=== PATIENT | male | born 1940 | race Caucasian/White ===

== ENCOUNTER 2017-06-13 07:18 | Day surgery (SDC) | payer OTHER ==
[2017-06-10 14:50] VITALS: BMI 29.2
[2017-06-13] MEDS ORDERED: MIDAZOLAM HCL 2 MG/2 ML SINGLE DOSE VIAL ONE (08:15)
[2017-06-13 09:54] VITALS: TEMP 97.7
[2017-06-13] MEDS ORDERED: ACETAMINOPHEN 325 MG TABLET (FP) PO PRN (10:03)
[2017-06-13] MEDS ORDERED: ONDANSETRON 4 MG/2 ML VIAL IVPUSH PRN (10:03)
[2017-06-13] MEDS ORDERED: LACTATED RINGERS SOLUTION 1,000 ML IV SCH (10:15)
--- NOTE | 2017-06-13 10:30 | OP ---
Operative Note - Note: Operative Date: 06/13/17 Pre-Operative Diagnosis: right renal stone Operation: right eswl Findings: right 5 mm renal stone Post-Operative Diagnosis: Same as Pre-op Surgeon: Jona Patel Anesthesia: Fractional Operative Report Dictated: Yes
[2017-06-13 11:15] VITALS: BP 116/52; PULSE 55
--- NOTE | 2017-06-13 22:03 | OP ---
DATE OF OPERATION: 06/13/2017 PREOPERATIVE DIAGNOSIS: Right renal stone. POSTOPERATIVE DIAGNOSIS: Right renal stone. PROCEDURE: Right extracorporeal shock wave lithotripsy. ATTENDING: Katie Schmidt MD ANESTHESIA: General. DESCRIPTION OF OPERATION: The patient was brought in the operating room and placed in supine position on the operating table. Ultrasonography and fluoroscopy were performed. A right 5-mm renal stone was identified. Once this was identified, fractional anesthesia was administered. Levaquin was given preoperatively. At this point, extracorporeal shock wave lithotripsy was performed on the 5-mm stone. Excellent fragmentation of the stone was noted under real-time ultrasonography and fluoroscopy. Once this was accomplished, the patient was transferred to the recovery room for evaluation. No complications were noted. The patient tolerated the procedure very well. KATIE SCHMIDT M.D. /[id number]
== END 2017-06-13 11:45 | disposition home or self-care (01) ==
LOC: JASU-SURG 07:18
PROVIDERS: ATTEND Urology
PROC: 0TF3XZZ Fragmentation in Right Kidney Pelvis, External Approach (ICD-10-PCS; principal; 2017-06-13 08:45)
DX: N20.0 Calculus of kidney (principal)
CPT/HCPCS: 82962

== ENCOUNTER 2020-04-24 11:50 | Inpatient (IN) | payer OTHER ==
[2020-04-24 14:29] LABS: BASO % 0.6 % (0-2.0); EOS % 0.8 % (0-4.5); HEMATOCRIT 35.3 % (35.4-49); HEMOGLOBIN 12.4 GM/dL (11.7-16.9); MCH 32.4 pg (25.7-33.7); MCHC 35.1 g/dl (32.0-35.9); MEAN CELL VOLUME 92.3 fl (80-96); MONO % 10.6 % (3.8-10.2); PLATELET COUNT 319 K/MM3 (134-434); RBC 3.82 M/mm3 (4.00-5.60); RDW 13.4 % (11.9-15.9); WHITE BLOOD COUNT 5.7 K/mm3 (4.0-10.0)
[2020-04-24 14:37] LABS: INR 1.23 (0.83-1.09); PROTHROMBIN TIME (PATIENT) 14.8 SEC (9.7-13.0)
[2020-04-24 14:40] LABS: ACTIVATED PTT 30.8 SECONDS (25.2-36.5)
[2020-04-24 14:43] LABS: CHLORIDE 105 mmol/L (98-107); POTASSIUM 3.9 mmol/L (3.5-5.1); SODIUM 140 mmol/L (136-145)
[2020-04-24 14:45] LABS: CALCIUM 8.4 mg/dL (8.5-10.1)
[2020-04-24 14:46] LABS: ALBUMIN 3.2 g/dl (3.4-5.0); ANION GAP 11 MMOL/L (8-16); BLOOD UREA NITROGEN 17.4 mg/dL (7-18); CO2 24 mmol/L (21-32); GLUCOSE,RANDOM 99 mg/dL (74-106)
[2020-04-24 14:49] LABS: CREATININE 0.8 mg/dL (0.55-1.3); SGOT/AST 40 U/L (15-37); SGPT/ALT 37 U/L (13-61)
[2020-04-24 14:51] LABS: TOT PROT 7.6 g/dl (6.4-8.2)
[2020-04-24 14:52] LABS: ALK PHOS 102 U/L (45-117)
[2020-04-24] MEDS ORDERED: HALOPERIDOL LACTATE 5 MG/ML IM ONE (15:31)
[2020-04-24] MEDS ORDERED: HALOPERIDOL LACTATE 5 MG/ML ONE ×2 (15:38→23:55)
[2020-04-24 15:44] LABS: URINE APPEARANCE Clear; URINE BILIRUBIN 1+ (NEGATIVE); URINE COLOR Yellow; URINE GLUCOSE (UA) Negative (NEGATIVE); URINE KETONE 1+ (NEGATIVE); URINE LEUK ESTERASE Negative (NEGATIVE); URINE NITRITE Negative (NEGATIVE); URINE PROTEIN 1+ (NEGATIVE); URINE UROBILINOGEN 4.0 E.U/dl mg/dL (0.2-1.0)
[2020-04-24] MEDS ORDERED: LORazepam 2 MG/ML SDV VIAL IM ONE ×2 (16:00→18:45)
[2020-04-24] MEDS ORDERED: LORazepam 2 MG/ML SDV VIAL ONE ×2 (16:04→18:40)
[2020-04-24] MEDS ORDERED: MAGNESIUM SULF 50% (8.12 MEQ/2 ML-1 GM VIAL) ONE (17:31)
[2020-04-24] MEDS: LORazepam 2 MG/ML SDV VIAL IVPUSH ONE ×2 (18:45)
[2020-04-24] MEDS ORDERED: HALOPERIDOL DECANOATE 100 MG/ML IM ONE (23:51)
[2020-04-25] MEDS ORDERED: AZITHROMYCIN IVPB 500 MG in DEXTROSE 5%-WATER - 250 ML IVPB ONE (00:12)
[2020-04-25] MEDS ORDERED: ALBUTEROL SO4 HFA INHALER IH PRN (00:14)
[2020-04-25] MEDS ORDERED: AZITHROMYCIN IVPB 500 MG/250 ML BAG IVPB ONE (00:43)
[2020-04-25] MEDS ORDERED: SODIUM CHLORIDE 0.9% 500 ML INFUS.BAG IV ONE (02:19)
[2020-04-25] MEDS ORDERED: MIDAZOLAM HCL 2 MG/2 ML SINGLE DOSE VIAL IVPUSH ONE ×4 (03:18→06:29)
[2020-04-25] MEDS ORDERED: MIDAZOLAM HCL 2 MG/2 ML SINGLE DOSE VIAL ONE ×4 (03:25→06:44)
[2020-04-25] MEDS ORDERED: LORazepam 2 MG/ML SDV VIAL ONE (03:39)
[2020-04-25] MEDS ORDERED: LORazepam 2 MG/ML SDV VIAL IVPUSH ONE (03:39)
[2020-04-25] MEDS ORDERED: HALOPERIDOL LACTATE 5 MG/ML IM ONE ×2 (03:53→19:57)
[2020-04-25] MEDS ORDERED: HALOPERIDOL LACTATE 5 MG/ML ONE (03:58)
[2020-04-25] MEDS ORDERED: FOLIC ACID INJECTION - 1 MG, THIAMINE HCL 100 MG, MULTIVIT INJECTION ADULT 10 ML in SOD... IVPB ONE (05:45)
[2020-04-25] MEDS: ZINC SULFATE 220 MG CAPSULE (FP) PO SCH ×2 (10:15→22:11)
[2020-04-25] MEDS: CHOLECALCIFEROL (VIT D3) 1,000 UNIT (25 MCG) TABLET PO SCH (10:16)
[2020-04-25] MEDS: ASCORBIC ACID 500 MG TABLET (FP) PO SCH ×2 (10:16→22:12)
[2020-04-25] MEDS ORDERED: ENOXAPARIN NA (PORCINE) 40 MG/0.4 ML DISP.SYRIN SQ ONE (10:19)
[2020-04-25] MEDS ORDERED: DEXAMETHASONE SOD PHOSPHATE 10 MG/1 ML VIAL ONE (10:19)
[2020-04-25] MEDS: DEXAMETHASONE SOD PHOSPHATE 4 MG/1 ML VIAL IVPUSH SCH (10:24)
[2020-04-25] MEDS: ENOXAPARIN NA (PORCINE) 40 MG/0.4 ML DISP.SYRIN SQ SCH (10:24)
[2020-04-25] MEDS ORDERED: CEFTRIAXONE 1 GM/50 ML BAG ONE (14:58)
[2020-04-25] MEDS: CEFTRIAXONE 1 GM in DEXTROSE 5%-WATER - 50 ML IVPB SCH (15:06)
[2020-04-25 20:36] LABS: COCAINE, UR NEGATIVE ng/ml (CUTOFF=300); METHADONE, UR NEGATIVE ng/ml (CUTOFF=300); OPIATES, URI NEGATIVE ng/ml (CUTOFF=300); URINE AMPHETAMINES NEGATIVE ng/ml (CUTOFF=500); URINE BARBITURATES NEGATIVE ng/ml (CUTOFF=200)
[2020-04-25 20:37] LABS: PHENCYCLIDINE,URINE NEGATIVE ng/ml (CUTOFF=25)
[2020-04-25 20:53] LABS: URINE BENZODIAZEPINES POSITIVE ng/ml (CUTOFF=200)
[2020-04-25] MEDS ORDERED: LORazepam 2 MG/ML SDV VIAL IM ONE (21:15)
[2020-04-25] MEDS: ATORVASTATIN CA 40 MG TABLET (FP) PO SCH (22:10)
[2020-04-25] MEDS: TAMSULOSIN HCL 0.4 MG CAP PO SCH (22:10)
[2020-04-26] MEDS: DEXTROSE 5%-0.45% SALINE 1,000 ML IV SCH (00:36)
[2020-04-26] MEDS ORDERED: LORazepam 2 MG/ML SDV VIAL IM ONE ×3 (01:25→23:45)
[2020-04-26] MEDS: INSULIN SLIDING SCALE (NOVOLOG) 1 VIAL SQ SCH ×4 (06:17→23:07)
[2020-04-26 06:52] LABS: BASO % 0.3 % (0-2.0); HEMATOCRIT 35.8 % (35.4-49); HEMOGLOBIN 12.5 GM/dL (11.7-16.9); MCH 32.1 pg (25.7-33.7); MEAN CELL VOLUME 91.9 fl (80-96); MEAN PLT VOLUME 7.7 fl (7.5-11.1); MONO % 12.4 % (3.8-10.2); NEUT % 78.3 % (42.8-82.8); PLATELET COUNT 358 K/MM3 (134-434); RDW 13.5 % (11.9-15.9); WHITE BLOOD COUNT 16.6 K/mm3 (4.0-10.0)
[2020-04-26 07:17] LABS: POTASSIUM 3.5 mmol/L (3.5-5.1)
[2020-04-26 07:22] LABS: ALBUMIN 3.5 g/dl (3.4-5.0); CALCIUM 8.4 mg/dL (8.5-10.1)
[2020-04-26 07:23] LABS: BLOOD UREA NITROGEN 20.6 mg/dL (7-18)
[2020-04-26 07:26] LABS: CREATININE 0.9 mg/dL (0.55-1.3)
[2020-04-26 07:27] LABS: BILIRUBIN,TOTAL 1.1 mg/dL (0.2-1); TOT PROT 7.9 g/dl (6.4-8.2)
[2020-04-26] MEDS ORDERED: PT OWN MED DRAWER 7, Y5N ONE (09:54)
[2020-04-26] MEDS ORDERED: cefTRIAXone SODIUM 1 GM VIAL ONE (09:54)
[2020-04-26] MEDS ORDERED: DEXTROSE 5%-WATER - 50 ML IVPB ONE (09:55)
[2020-04-26] MEDS: ENOXAPARIN NA (PORCINE) 40 MG/0.4 ML DISP.SYRIN SQ SCH (10:13)
[2020-04-26] MEDS: CEFTRIAXONE 1 GM in DEXTROSE 5%-WATER - 50 ML IVPB SCH (10:14)
[2020-04-26] MEDS: DEXAMETHASONE SOD PHOSPHATE 4 MG/1 ML VIAL IVPUSH SCH (10:15)
[2020-04-26] MEDS: CHOLECALCIFEROL (VIT D3) 1,000 UNIT (25 MCG) TABLET PO SCH (10:41)
[2020-04-26] MEDS: ZINC SULFATE 220 MG CAPSULE (FP) PO SCH ×2 (10:41→22:38)
[2020-04-26] MEDS: ASCORBIC ACID 500 MG TABLET (FP) PO SCH ×2 (10:41→22:38)
[2020-04-26] MEDS ORDERED: ACETAMINOPHEN 1000 MG/100 ML VIAL (NON FORMULARY) IVPB ONE (12:30)
[2020-04-26 13:11] VITALS: BMI 31.6
[2020-04-26] MEDS ORDERED: REMDESIVIR 200 MG in SODIUM CHLORIDE 210 ML IVPB ONE (14:00)
[2020-04-26] MEDS: ENOXAPARIN NA (PORCINE) 80 MG/0.8 ML DISP.SYRIN SQ SCH ×2 (14:28→23:04)
[2020-04-26] MEDS: TAMSULOSIN HCL 0.4 MG CAP PO SCH (22:38)
[2020-04-26] MEDS: ATORVASTATIN CA 40 MG TABLET (FP) PO SCH (22:38)
[2020-04-27] MEDS ORDERED: ACETAMINOPHEN INJECTION 100 ML IVPB ONE (02:15)
[2020-04-27] MEDS: ACETAMINOPHEN 1000 MG/100 ML VIAL (NON FORMULARY) IVPB PRN ×2 (02:19→13:22)
[2020-04-27] MEDS: DEXTROSE 5%-0.45% SALINE 1,000 ML IV SCH (02:19)
[2020-04-27] MEDS: INSULIN SLIDING SCALE (NOVOLOG) 1 VIAL SQ SCH ×4 (06:14→22:11)
[2020-04-27 07:50] LABS: BASO % 0.2 % (0-2.0); HEMATOCRIT 34.9 % (35.4-49); HEMOGLOBIN 11.9 GM/dL (11.7-16.9); LYMPH % 4.7 % (8-40); MCH 31.3 pg (25.7-33.7); MCHC 34.1 g/dl (32.0-35.9); MEAN CELL VOLUME 91.7 fl (80-96); MONO % 6.3 % (3.8-10.2); NEUT % 88.8 % (42.8-82.8); PLATELET COUNT 343 K/MM3 (134-434); RBC 3.81 M/mm3 (4.00-5.60); RDW 13.5 % (11.9-15.9); WHITE BLOOD COUNT 24.2 K/mm3 (4.0-10.0)
[2020-04-27 08:10] LABS: CALCIUM 8.3 mg/dL (8.5-10.1)
[2020-04-27 08:11] LABS: ALBUMIN 3.4 g/dl (3.4-5.0); BLOOD UREA NITROGEN 25.3 mg/dL (7-18)
[2020-04-27 08:14] LABS: CREATININE 0.8 mg/dL (0.55-1.3)
[2020-04-27 08:15] LABS: BILIRUBIN,TOTAL 0.9 mg/dL (0.2-1); TOT PROT 7.8 g/dl (6.4-8.2)
[2020-04-27] MEDS ORDERED: DEXTROSE 5%-WATER - 50 ML IVPB ONE (11:57)
[2020-04-27] MEDS ORDERED: cefTRIAXone SODIUM 1 GM VIAL ONE (11:57)
[2020-04-27] MEDS: ZINC SULFATE 220 MG CAPSULE (FP) PO SCH ×2 (13:22→22:10)
[2020-04-27] MEDS: ASCORBIC ACID 500 MG TABLET (FP) PO SCH ×2 (13:22→22:10)
[2020-04-27] MEDS: ENOXAPARIN NA (PORCINE) 80 MG/0.8 ML DISP.SYRIN SQ SCH ×2 (13:22→22:11)
[2020-04-27] MEDS: DEXAMETHASONE SOD PHOSPHATE 4 MG/1 ML VIAL IVPUSH SCH (13:22)
[2020-04-27] MEDS: CHOLECALCIFEROL (VIT D3) 1,000 UNIT (25 MCG) TABLET PO SCH (13:22)
[2020-04-27] MEDS: CEFTRIAXONE 1 GM in DEXTROSE 5%-WATER - 50 ML IVPB SCH (13:35)
[2020-04-27] MEDS: REMDESIVIR 100 MG in SODIUM CHLORIDE 230 ML IVPB SCH (15:17)
[2020-04-27] MEDS ORDERED: PNEUMOC 13-VAL CONJ-DIP CRM/PF 0.5 ML DISP.SYRIN IM ONE (20:00)
[2020-04-27] MEDS: ATORVASTATIN CA 40 MG TABLET (FP) PO SCH (22:10)
[2020-04-27] MEDS: TAMSULOSIN HCL 0.4 MG CAP PO SCH (22:10)
[2020-04-28] MEDS: INSULIN SLIDING SCALE (NOVOLOG) 1 VIAL SQ SCH ×4 (06:28→22:43)
[2020-04-28] MEDS: ACETAMINOPHEN 1000 MG/100 ML VIAL (NON FORMULARY) IVPB PRN (06:38)
[2020-04-28 08:30] LABS: BASO % 0.3 % (0-2.0); HEMATOCRIT 33.6 % (35.4-49); HEMOGLOBIN 11.6 GM/dL (11.7-16.9); MCH 31.9 pg (25.7-33.7); MCHC 34.6 g/dl (32.0-35.9); MEAN CELL VOLUME 92.1 fl (80-96); MEAN PLT VOLUME 8.5 fl (7.5-11.1); MONO % 5.2 % (3.8-10.2); NEUT % 88.5 % (42.8-82.8); PLATELET COUNT 299 K/MM3 (134-434); RBC 3.65 M/mm3 (4.00-5.60); RDW 13.8 % (11.9-15.9); WHITE BLOOD COUNT 21.9 K/mm3 (4.0-10.0)
[2020-04-28 08:48] LABS: POTASSIUM 3.1 mmol/L (3.5-5.1)
[2020-04-28 08:52] LABS: BLOOD UREA NITROGEN 29.4 mg/dL (7-18)
[2020-04-28 08:55] LABS: CREATININE 0.7 mg/dL (0.55-1.3)
[2020-04-28 08:56] LABS: BILIRUBIN,TOTAL 0.9 mg/dL (0.2-1); TOT PROT 7.3 g/dl (6.4-8.2)
[2020-04-28] MEDS ORDERED: DEXTROSE 5%-WATER - 50 ML IVPB ONE (09:02)
[2020-04-28] MEDS ORDERED: cefTRIAXone SODIUM 1 GM VIAL ONE (09:02)
[2020-04-28] MEDS: ENOXAPARIN NA (PORCINE) 80 MG/0.8 ML DISP.SYRIN SQ SCH ×2 (09:18→22:42)
[2020-04-28] MEDS: CEFTRIAXONE 1 GM in DEXTROSE 5%-WATER - 50 ML IVPB SCH (09:18)
[2020-04-28] MEDS: DEXAMETHASONE SOD PHOSPHATE 4 MG/1 ML VIAL IVPUSH SCH (09:19)
[2020-04-28] MEDS: ASCORBIC ACID 500 MG TABLET (FP) PO SCH ×2 (09:20→22:42)
[2020-04-28] MEDS: CHOLECALCIFEROL (VIT D3) 1,000 UNIT (25 MCG) TABLET PO SCH (09:20)
[2020-04-28] MEDS: ZINC SULFATE 220 MG CAPSULE (FP) PO SCH ×2 (09:20→22:42)
[2020-04-28 11:52] LABS: ANISOCYTOSIS 1+; MACROCYTOSIS 0; PLATELET ESTIMATE NORMAL; TOXIC GRANULATION 1+
[2020-04-28] MEDS: REMDESIVIR 100 MG in SODIUM CHLORIDE 230 ML IVPB SCH (15:05)
[2020-04-28] MEDS: TAMSULOSIN HCL 0.4 MG CAP PO SCH (22:42)
[2020-04-28] MEDS: ATORVASTATIN CA 40 MG TABLET (FP) PO SCH (22:42)
[2020-04-28] MEDS: KCL 10 MEQ IVPB 10 MEQ/100 ML INFUS.BAG IVPB SCH ×2 (22:43→23:56)
[2020-04-29] MEDS: KCL 10 MEQ IVPB 10 MEQ/100 ML INFUS.BAG IVPB SCH ×3 (01:10→23:51)
[2020-04-29] MEDS: INSULIN SLIDING SCALE (NOVOLOG) 1 VIAL SQ SCH ×4 (07:01→23:03)
[2020-04-29 08:26] LABS: BASO % 0.9 % (0-2.0); HEMATOCRIT 33.8 % (35.4-49); HEMOGLOBIN 11.3 GM/dL (11.7-16.9); LYMPH % 10.8 % (8-40); MCH 31.1 pg (25.7-33.7); MCHC 33.4 g/dl (32.0-35.9); MEAN PLT VOLUME 8.9 fl (7.5-11.1); MONO % 4.9 % (3.8-10.2); NEUT % 83.4 % (42.8-82.8); PLATELET COUNT 277 K/MM3 (134-434); RBC 3.64 M/mm3 (4.00-5.60); RDW 14.1 % (11.9-15.9); WHITE BLOOD COUNT 13.9 K/mm3 (4.0-10.0)
[2020-04-29 08:46] LABS: POTASSIUM 3.3 mmol/L (3.5-5.1)
[2020-04-29 08:48] LABS: ALBUMIN 2.7 g/dl (3.4-5.0); BLOOD UREA NITROGEN 27.1 mg/dL (7-18); CALCIUM 8.2 mg/dL (8.5-10.1)
[2020-04-29 08:52] LABS: CREATININE 0.5 mg/dL (0.55-1.3)
[2020-04-29 08:53] LABS: BILIRUBIN,TOTAL 0.9 mg/dL (0.2-1)
[2020-04-29] MEDS ORDERED: cefTRIAXone SODIUM 1 GM VIAL ONE (10:36)
[2020-04-29] MEDS ORDERED: DEXTROSE 5%-WATER - 50 ML IVPB ONE (10:36)
[2020-04-29] MEDS: ASCORBIC ACID 500 MG TABLET (FP) PO SCH ×2 (10:42→22:48)
[2020-04-29] MEDS: ENOXAPARIN NA (PORCINE) 80 MG/0.8 ML DISP.SYRIN SQ SCH ×2 (10:42→23:03)
[2020-04-29] MEDS: CEFTRIAXONE 1 GM in DEXTROSE 5%-WATER - 50 ML IVPB SCH (10:42)
[2020-04-29] MEDS: DEXAMETHASONE SOD PHOSPHATE 4 MG/1 ML VIAL IVPUSH SCH (10:42)
[2020-04-29] MEDS: ZINC SULFATE 220 MG CAPSULE (FP) PO SCH ×2 (10:42→22:48)
[2020-04-29] MEDS: LISINOPRIL 5 MG TABLET PO SCH (10:42)
[2020-04-29] MEDS: CHOLECALCIFEROL (VIT D3) 1,000 UNIT (25 MCG) TABLET PO SCH (10:42)
[2020-04-29] MEDS: REMDESIVIR 100 MG in SODIUM CHLORIDE 230 ML IVPB SCH (14:03)
[2020-04-29] MEDS ORDERED: ACETAMINOPHEN 500 MG TABLET (FP) PO PRN (17:46)
[2020-04-29] MEDS: ATORVASTATIN CA 40 MG TABLET (FP) PO SCH (22:48)
[2020-04-29] MEDS: TAMSULOSIN HCL 0.4 MG CAP PO SCH (22:48)
[2020-04-29] MEDS: DEXTROSE 5%-0.45% SALINE 1,000 ML IV SCH (22:53)
[2020-04-30] MEDS: INSULIN SLIDING SCALE (NOVOLOG) 1 VIAL SQ SCH ×4 (06:14→22:19)
[2020-04-30 07:28] LABS: POTASSIUM 3.1 mmol/L (3.5-5.1)
[2020-04-30 07:44] LABS: ALBUMIN 2.5 g/dl (3.4-5.0); BLOOD UREA NITROGEN 28.4 mg/dL (7-18); CALCIUM 8.1 mg/dL (8.5-10.1)
[2020-04-30 07:47] LABS: CREATININE 0.7 mg/dL (0.55-1.3)
[2020-04-30 07:49] LABS: TOT PROT 6.5 g/dl (6.4-8.2)
[2020-04-30] MEDS ORDERED: cefTRIAXone SODIUM 1 GM VIAL ONE (09:53)
[2020-04-30] MEDS ORDERED: DEXTROSE 5%-WATER - 50 ML IVPB ONE (09:53)
[2020-04-30] MEDS: DEXAMETHASONE SOD PHOSPHATE 4 MG/1 ML VIAL IVPUSH SCH (09:56)
[2020-04-30] MEDS: ENOXAPARIN NA (PORCINE) 80 MG/0.8 ML DISP.SYRIN SQ SCH ×2 (09:56→22:18)
[2020-04-30] MEDS: LISINOPRIL 5 MG TABLET PO SCH (09:57)
[2020-04-30] MEDS: ZINC SULFATE 220 MG CAPSULE (FP) PO SCH ×2 (09:57→22:19)
[2020-04-30] MEDS: ASCORBIC ACID 500 MG TABLET (FP) PO SCH ×2 (09:57→22:18)
[2020-04-30] MEDS: CEFTRIAXONE 1 GM in DEXTROSE 5%-WATER - 50 ML IVPB SCH (09:57)
[2020-04-30] MEDS: CHOLECALCIFEROL (VIT D3) 1,000 UNIT (25 MCG) TABLET PO SCH (09:57)
[2020-04-30] MEDS: REMDESIVIR 100 MG in SODIUM CHLORIDE 230 ML IVPB SCH (14:30)
[2020-04-30] MEDS: ATORVASTATIN CA 40 MG TABLET (FP) PO SCH (22:18)
[2020-04-30] MEDS: TAMSULOSIN HCL 0.4 MG CAP PO SCH (22:18)
[2020-05-01] MEDS: INSULIN SLIDING SCALE (NOVOLOG) 1 VIAL SQ SCH ×4 (06:36→22:29)
[2020-05-01] MEDS: DEXTROSE 5%-0.45% SALINE 1,000 ML IV SCH ×2 (06:37→15:01)
[2020-05-01] MEDS ORDERED: DEXTROSE 5%-WATER - 50 ML IVPB ONE (09:26)
[2020-05-01] MEDS ORDERED: cefTRIAXone SODIUM 1 GM VIAL ONE (09:26)
[2020-05-01] MEDS: DEXAMETHASONE SOD PHOSPHATE 4 MG/1 ML VIAL IVPUSH SCH (09:29)
[2020-05-01] MEDS: CHOLECALCIFEROL (VIT D3) 1,000 UNIT (25 MCG) TABLET PO SCH (09:31)
[2020-05-01] MEDS: LISINOPRIL 5 MG TABLET PO SCH (09:31)
[2020-05-01] MEDS: ZINC SULFATE 220 MG CAPSULE (FP) PO SCH ×2 (09:31→22:30)
[2020-05-01] MEDS: ENOXAPARIN NA (PORCINE) 80 MG/0.8 ML DISP.SYRIN SQ SCH ×2 (09:31→22:29)
[2020-05-01] MEDS: ASCORBIC ACID 500 MG TABLET (FP) PO SCH ×2 (09:31→22:30)
[2020-05-01] MEDS: CEFTRIAXONE 1 GM in DEXTROSE 5%-WATER - 50 ML IVPB SCH (09:31)
[2020-05-01 14:41] LABS: POTASSIUM 3.2 mmol/L (3.5-5.1)
[2020-05-01 14:44] LABS: ALBUMIN 2.4 g/dl (3.4-5.0); BLOOD UREA NITROGEN 28.2 mg/dL (7-18); CALCIUM 7.9 mg/dL (8.5-10.1)
[2020-05-01 14:47] LABS: CREATININE 0.7 mg/dL (0.55-1.3)
[2020-05-01 14:49] LABS: BILIRUBIN,TOTAL 0.5 mg/dL (0.2-1); TOT PROT 6.2 g/dl (6.4-8.2)
[2020-05-01] MEDS: KCL 10 MEQ IVPB 10 MEQ/100 ML INFUS.BAG IVPB SCH ×2 (15:02→17:02)
[2020-05-01] MEDS: ATORVASTATIN CA 40 MG TABLET (FP) PO SCH (22:30)
[2020-05-01] MEDS: TAMSULOSIN HCL 0.4 MG CAP PO SCH (22:30)
[2020-05-02] MEDS: INSULIN SLIDING SCALE (NOVOLOG) 1 VIAL SQ SCH ×4 (06:07→22:51)
[2020-05-02 07:02] LABS: BASO % 0.1 % (0-2.0); EOS % 0.2 % (0-4.5); HEMATOCRIT 33.4 % (35.4-49); HEMOGLOBIN 11.6 GM/dL (11.7-16.9); LYMPH % 20.1 % (8-40); MCH 31.6 pg (25.7-33.7); MCHC 34.6 g/dl (32.0-35.9); MEAN CELL VOLUME 91.4 fl (80-96); MEAN PLT VOLUME 8.9 fl (7.5-11.1); MONO % 8.8 % (3.8-10.2); NEUT % 70.8 % (42.8-82.8); PLATELET COUNT 207 K/MM3 (134-434); RBC 3.66 M/mm3 (4.00-5.60); RDW 13.7 % (11.9-15.9); WHITE BLOOD COUNT 8.5 K/mm3 (4.0-10.0)
[2020-05-02 07:14] LABS: CHLORIDE 108 mmol/L (98-107); POTASSIUM 3.2 mmol/L (3.5-5.1); SODIUM 142 mmol/L (136-145)
[2020-05-02 07:19] LABS: ALBUMIN 2.4 g/dl (3.4-5.0); BLOOD UREA NITROGEN 19.6 mg/dL (7-18); CALCIUM 7.7 mg/dL (8.5-10.1)
[2020-05-02 07:22] LABS: ANION GAP 6 MMOL/L (8-16); CO2 27 mmol/L (21-32); GLUCOSE,RANDOM 115 mg/dL (74-106)
[2020-05-02 07:23] LABS: CREATININE 0.5 mg/dL (0.55-1.3); SGOT/AST 60 U/L (15-37); SGPT/ALT 81 U/L (13-61)
[2020-05-02 07:24] LABS: BILIRUBIN,TOTAL 0.8 mg/dL (0.2-1); TOT PROT 6.1 g/dl (6.4-8.2)
[2020-05-02 07:25] LABS: ALK PHOS 78 U/L (45-117)
[2020-05-02] MEDS ORDERED: cefTRIAXone SODIUM 1 GM VIAL ONE (08:52)
[2020-05-02] MEDS ORDERED: DEXTROSE 5%-WATER - 50 ML IVPB ONE (08:52)
[2020-05-02] MEDS: CEFTRIAXONE 1 GM in DEXTROSE 5%-WATER - 50 ML IVPB SCH (09:27)
[2020-05-02] MEDS: DEXAMETHASONE SOD PHOSPHATE 4 MG/1 ML VIAL IVPUSH SCH (09:30)
[2020-05-02] MEDS: CHOLECALCIFEROL (VIT D3) 1,000 UNIT (25 MCG) TABLET PO SCH (09:30)
[2020-05-02] MEDS: ZINC SULFATE 220 MG CAPSULE (FP) PO SCH ×2 (09:30→22:34)
[2020-05-02] MEDS: ASCORBIC ACID 500 MG TABLET (FP) PO SCH ×2 (09:30→22:34)
[2020-05-02] MEDS: LISINOPRIL 5 MG TABLET PO SCH (09:30)
[2020-05-02] MEDS: ENOXAPARIN NA (PORCINE) 80 MG/0.8 ML DISP.SYRIN SQ SCH ×2 (09:30→22:34)
[2020-05-02 11:00] LABS: ANISOCYTOSIS 3+; MACROCYTOSIS 0; PLATELET ESTIMATE NORMAL; TOXIC GRANULATION 1+
[2020-05-02 12:40] LABS: MAGNESIUM 1.8 mg/dL (1.8-2.4)
[2020-05-02 12:43] LABS: CHOLESTEROL 67 mg/dL (50-200); PHOSPHOROUS 3.5 mg/dL (2.5-4.9); TRIGLYCERIDES 53 mg/dL (0-150)
[2020-05-02 12:45] LABS: LDL CHOLESTEROL (ONLY SJRH) 30 mg/dL (5-100)
[2020-05-02 12:47] LABS: HDL CHOLESTEROL 41 mg/dL (40-60)
[2020-05-02 12:49] LABS: N-TERMINAL BNP 272.6 pg/ml (5-450)
[2020-05-02] MEDS: TAMSULOSIN HCL 0.4 MG CAP PO SCH (22:33)
[2020-05-02] MEDS: ATORVASTATIN CA 40 MG TABLET (FP) PO SCH (22:34)
[2020-05-02] MEDS: POTASSIUM CHLORIDE TABS 20 MEQ TABLET.ER (FP) PO SCH ×2 (22:54→22:55)
[2020-05-02] MEDS ORDERED: ALBUTEROL SO4 HFA INHALER IH PRN (23:55)
[2020-05-02] MEDS ORDERED: ACETAMINOPHEN 500 MG TABLET (FP) PO PRN (23:55)
[2020-05-03] MEDS: KCL 10 MEQ IVPB 10 MEQ/100 ML INFUS.BAG IVPB SCH ×4 (00:06→16:32)
[2020-05-03] MEDS: INSULIN SLIDING SCALE (NOVOLOG) 1 VIAL SQ SCH ×4 (06:28→23:05)
[2020-05-03] MEDS ORDERED: ENOXAPARIN NA (PORCINE) 80 MG/0.8 ML DISP.SYRIN SQ SCH (10:00)
[2020-05-03] MEDS ORDERED: DEXAMETHASONE SOD PHOSPHATE 4 MG/1 ML VIAL IVPUSH SCH (10:00)
[2020-05-03 10:44] LABS: BASO % 0.5 % (0-2.0); EOS % 1.3 % (0-4.5); HEMATOCRIT 33.4 % (35.4-49); HEMOGLOBIN 11.5 GM/dL (11.7-16.9); LYMPH % 17.9 % (8-40); MCH 31.5 pg (25.7-33.7); MCHC 34.3 g/dl (32.0-35.9); MEAN CELL VOLUME 91.8 fl (80-96); MEAN PLT VOLUME 9.5 fl (7.5-11.1); MONO % 9.1 % (3.8-10.2); NEUT % 71.2 % (42.8-82.8); PLATELET COUNT 188 K/MM3 (134-434); RBC 3.64 M/mm3 (4.00-5.60); RDW 13.7 % (11.9-15.9); WHITE BLOOD COUNT 9.4 K/mm3 (4.0-10.0)
[2020-05-03 11:15] LABS: POTASSIUM 3.1 mmol/L (3.5-5.1)
[2020-05-03 11:19] LABS: ALBUMIN 2.4 g/dl (3.4-5.0); CALCIUM 7.8 mg/dL (8.5-10.1)
[2020-05-03 11:20] LABS: BLOOD UREA NITROGEN 16.7 mg/dL (7-18)
[2020-05-03 11:22] LABS: CREATININE 0.5 mg/dL (0.55-1.3)
[2020-05-03 11:25] LABS: BILIRUBIN,TOTAL 0.8 mg/dL (0.2-1); TOT PROT 5.8 g/dl (6.4-8.2)
[2020-05-03 12:55] LABS: ANISOCYTOSIS 0; HELMET CELLS 0; HOWELL-JOLLY BODIES 0; MACROCYTOSIS 0; OVALOCYTE 0; PLATELET ESTIMATE NORMAL; ROULEAU 0; SICKELED CELLS 0; TARGET CELLS 0; TEAR DROP CELLS 0; TOXIC GRANULATION 0
[2020-05-03] MEDS: CHOLECALCIFEROL (VIT D3) 1,000 UNIT (25 MCG) TABLET PO SCH (12:59)
[2020-05-03] MEDS: LISINOPRIL 5 MG TABLET PO SCH (12:59)
[2020-05-03] MEDS: ASCORBIC ACID 500 MG TABLET (FP) PO SCH ×2 (12:59→21:44)
[2020-05-03] MEDS: ENOXAPARIN NA (PORCINE) 40 MG/0.4 ML DISP.SYRIN SQ SCH (12:59)
[2020-05-03] MEDS: ZINC SULFATE 220 MG CAPSULE (FP) PO SCH ×2 (12:59→21:43)
[2020-05-03] MEDS: TAMSULOSIN HCL 0.4 MG CAP PO SCH (13:00)
[2020-05-03] MEDS ORDERED: POTASSIUM CHLORIDE ORAL LIQUID 20 MEQ/15 ML PO ONE (14:15)
[2020-05-03] MEDS ORDERED: DEXAMETHASONE 4 MG TABLET (FP) PO SCH (20:15)
[2020-05-03] MEDS: ATORVASTATIN CA 40 MG TABLET (FP) PO SCH (21:44)
[2020-05-03] MEDS: SILVER SULFADIAZINE 1% TOP CREAM 400 GM JAR TP SCH (22:59)
[2020-05-04] MEDS: SILVER SULFADIAZINE 1% TOP CREAM 400 GM JAR TP SCH ×2 (05:50→12:36)
[2020-05-04] MEDS: INSULIN SLIDING SCALE (NOVOLOG) 1 VIAL SQ SCH ×4 (06:32→23:02)
[2020-05-04 10:11] LABS: BASO % 0.2 % (0-2.0); EOS % 0.1 % (0-4.5); HEMATOCRIT 36.3 % (35.4-49); HEMOGLOBIN 12.5 GM/dL (11.7-16.9); LYMPH % 10.6 % (8-40); MCH 31.5 pg (25.7-33.7); MCHC 34.4 g/dl (32.0-35.9); MEAN CELL VOLUME 91.6 fl (80-96); MEAN PLT VOLUME 9.2 fl (7.5-11.1); MONO % 3.3 % (3.8-10.2); NEUT % 85.8 % (42.8-82.8); PLATELET COUNT 168 K/MM3 (134-434); RBC 3.97 M/mm3 (4.00-5.60); RDW 13.7 % (11.9-15.9); WHITE BLOOD COUNT 7.4 K/mm3 (4.0-10.0)
[2020-05-04 10:23] LABS: POTASSIUM 4.7 mmol/L (3.5-5.1)
[2020-05-04 10:32] LABS: ALBUMIN 2.5 g/dl (3.4-5.0); BLOOD UREA NITROGEN 16.2 mg/dL (7-18); CREATININE 0.6 mg/dL (0.55-1.3)
[2020-05-04 10:34] LABS: BILIRUBIN,TOTAL 0.9 mg/dL (0.2-1); TOT PROT 6.2 g/dl (6.4-8.2)
[2020-05-04 11:48] LABS: MACROCYTOSIS 0; PLATELET ESTIMATE NORMAL
[2020-05-04 12:23] LABS: ANISOCYTOSIS 0
[2020-05-04] MEDS: CHOLECALCIFEROL (VIT D3) 1,000 UNIT (25 MCG) TABLET PO SCH ×2 (12:35→12:52)
[2020-05-04] MEDS: ENOXAPARIN NA (PORCINE) 40 MG/0.4 ML DISP.SYRIN SQ SCH (12:35)
[2020-05-04] MEDS: ZINC SULFATE 220 MG CAPSULE (FP) PO SCH ×3 (12:36→22:57)
[2020-05-04] MEDS: DEXAMETHASONE 4 MG TABLET (FP) PO SCH ×2 (12:36→12:49)
[2020-05-04] MEDS: TAMSULOSIN HCL 0.4 MG CAP PO SCH ×2 (12:36→12:50)
[2020-05-04] MEDS: LISINOPRIL 5 MG TABLET PO SCH ×2 (12:36→12:50)
[2020-05-04] MEDS: ASCORBIC ACID 500 MG TABLET (FP) PO SCH ×3 (12:36→22:58)
[2020-05-04] MEDS: ATORVASTATIN CA 40 MG TABLET (FP) PO SCH (22:57)
[2020-05-05] MEDS: DEXAMETHASONE 4 MG TABLET (FP) PO SCH ×3 (05:50→22:07)
[2020-05-05] MEDS: INSULIN SLIDING SCALE (NOVOLOG) 1 VIAL SQ SCH ×4 (06:13→22:16)
[2020-05-05 10:24] LABS: BASO % 0.1 % (0-2.0); EOS % 0.5 % (0-4.5); HEMATOCRIT 35.1 % (35.4-49); LYMPH % 16.3 % (8-40); MCH 31.4 pg (25.7-33.7); MCHC 34.1 g/dl (32.0-35.9); MEAN CELL VOLUME 92.1 fl (80-96); MEAN PLT VOLUME 9.1 fl (7.5-11.1); MONO % 8.6 % (3.8-10.2); NEUT % 74.5 % (42.8-82.8); PLATELET COUNT 163 K/MM3 (134-434); RBC 3.81 M/mm3 (4.00-5.60); RDW 13.8 % (11.9-15.9); WHITE BLOOD COUNT 11.3 K/mm3 (4.0-10.0)
[2020-05-05 10:32] LABS: POTASSIUM 3.7 mmol/L (3.5-5.1)
[2020-05-05 10:36] LABS: CALCIUM 7.8 mg/dL (8.5-10.1)
[2020-05-05 10:37] LABS: ALBUMIN 2.4 g/dl (3.4-5.0); BLOOD UREA NITROGEN 25.9 mg/dL (7-18)
[2020-05-05 10:40] LABS: CREATININE 0.7 mg/dL (0.55-1.3)
[2020-05-05 10:41] LABS: BILIRUBIN,TOTAL 1.3 mg/dL (0.2-1)
[2020-05-05 10:42] LABS: TOT PROT 6.2 g/dl (6.4-8.2)
[2020-05-05] MEDS: CHOLECALCIFEROL (VIT D3) 1,000 UNIT (25 MCG) TABLET PO SCH (12:26)
[2020-05-05] MEDS: ZINC SULFATE 220 MG CAPSULE (FP) PO SCH ×2 (12:26→22:07)
[2020-05-05] MEDS: LISINOPRIL 5 MG TABLET PO SCH (12:26)
[2020-05-05] MEDS: TAMSULOSIN HCL 0.4 MG CAP PO SCH (12:26)
[2020-05-05] MEDS: ASCORBIC ACID 500 MG TABLET (FP) PO SCH ×2 (12:26→22:07)
[2020-05-05] MEDS: SILVER SULFADIAZINE 1% TOP CREAM 400 GM JAR TP SCH ×2 (12:27→22:17)
[2020-05-05] MEDS: ENOXAPARIN NA (PORCINE) 40 MG/0.4 ML DISP.SYRIN SQ SCH (14:21)
[2020-05-05 16:00] LABS: ANISOCYTOSIS 0; MACROCYTOSIS 0; PLATELET ESTIMATE DECREASED
[2020-05-05] MEDS: HALOPERIDOL LACTATE 5 MG/ML IM PRN (17:16)
[2020-05-05] MEDS: ATORVASTATIN CA 40 MG TABLET (FP) PO SCH (22:07)
[2020-05-06] MEDS: HALOPERIDOL LACTATE 5 MG/ML IM PRN ×3 (01:00→17:47)
[2020-05-06] MEDS: INSULIN SLIDING SCALE (NOVOLOG) 1 VIAL SQ SCH ×4 (06:17→22:19)
[2020-05-06] MEDS: LISINOPRIL 5 MG TABLET PO SCH (10:38)
[2020-05-06] MEDS: ZINC SULFATE 220 MG CAPSULE (FP) PO SCH ×2 (10:38→23:19)
[2020-05-06] MEDS: SILVER SULFADIAZINE 1% TOP CREAM 400 GM JAR TP SCH ×2 (10:39→23:20)
[2020-05-06] MEDS: TAMSULOSIN HCL 0.4 MG CAP PO SCH (10:39)
[2020-05-06] MEDS: ASCORBIC ACID 500 MG TABLET (FP) PO SCH ×2 (10:39→23:20)
[2020-05-06] MEDS: CHOLECALCIFEROL (VIT D3) 1,000 UNIT (25 MCG) TABLET PO SCH (10:39)
[2020-05-06] MEDS: DEXAMETHASONE 4 MG TABLET (FP) PO SCH (10:40)
[2020-05-06] MEDS: ENOXAPARIN NA (PORCINE) 40 MG/0.4 ML DISP.SYRIN SQ SCH (10:51)
[2020-05-06] MEDS ORDERED: INSULIN (NOVOLOG) ASPART 100 UNITS/ML 10ML VIAL ONE (11:08)
[2020-05-06] MEDS ORDERED: HALOPERIDOL LACTATE 5 MG/ML IM ONE (12:00)
[2020-05-06] MEDS: ATORVASTATIN CA 40 MG TABLET (FP) PO SCH (23:19)
[2020-05-07] MEDS: INSULIN SLIDING SCALE (NOVOLOG) 1 VIAL SQ SCH ×4 (06:30→22:12)
[2020-05-07 07:00] LABS: BASO % 0.3 % (0-2.0); EOS % 0.4 % (0-4.5); HEMATOCRIT 36.8 % (35.4-49); HEMOGLOBIN 12.5 GM/dL (11.7-16.9); LYMPH % 13.7 % (8-40); MCH 31.2 pg (25.7-33.7); MEAN PLT VOLUME 8.9 fl (7.5-11.1); MONO % 10.4 % (3.8-10.2); NEUT % 75.2 % (42.8-82.8); PLATELET COUNT 176 K/MM3 (134-434); RDW 13.7 % (11.9-15.9); WHITE BLOOD COUNT 12.1 K/mm3 (4.0-10.0)
[2020-05-07 07:30] LABS: POTASSIUM 3.9 mmol/L (3.5-5.1)
[2020-05-07 07:33] LABS: CALCIUM 7.8 mg/dL (8.5-10.1)
[2020-05-07 07:34] LABS: ALBUMIN 2.6 g/dl (3.4-5.0); BLOOD UREA NITROGEN 36.1 mg/dL (7-18)
[2020-05-07 07:37] LABS: CREATININE 0.7 mg/dL (0.55-1.3)
[2020-05-07 07:39] LABS: BILIRUBIN,TOTAL 0.7 mg/dL (0.2-1); TOT PROT 6.3 g/dl (6.4-8.2)
[2020-05-07 09:38] LABS: ANISOCYTOSIS 0; MACROCYTOSIS 0; PLATELET ESTIMATE NORMAL
[2020-05-07] MEDS: ENOXAPARIN NA (PORCINE) 40 MG/0.4 ML DISP.SYRIN SQ SCH (10:25)
[2020-05-07] MEDS: LISINOPRIL 5 MG TABLET PO SCH (10:25)
[2020-05-07] MEDS: TAMSULOSIN HCL 0.4 MG CAP PO SCH (10:25)
[2020-05-07] MEDS: DEXAMETHASONE 4 MG TABLET (FP) PO SCH (10:25)
[2020-05-07] MEDS: ZINC SULFATE 220 MG CAPSULE (FP) PO SCH ×2 (10:33→22:11)
[2020-05-07] MEDS: ASCORBIC ACID 500 MG TABLET (FP) PO SCH ×2 (10:33→22:11)
[2020-05-07] MEDS: CHOLECALCIFEROL (VIT D3) 1,000 UNIT (25 MCG) TABLET PO SCH (10:33)
[2020-05-07] MEDS: SILVER SULFADIAZINE 1% TOP CREAM 400 GM JAR TP SCH ×2 (10:34→22:27)
[2020-05-07] MEDS: HALOPERIDOL LACTATE 5 MG/ML IM PRN (14:32)
[2020-05-07] MEDS: AMINO ACIDS/PROTEIN HYDROLYS 30 ML LIQUID.PKT PO SCH (17:27)
[2020-05-07] MEDS ORDERED: INSULIN (NOVOLOG) ASPART 100 UNITS/ML 10ML VIAL ONE (21:51)
[2020-05-07] MEDS: ATORVASTATIN CA 40 MG TABLET (FP) PO SCH (22:11)
[2020-05-08] MEDS: INSULIN SLIDING SCALE (NOVOLOG) 1 VIAL SQ SCH ×4 (06:09→22:48)
[2020-05-08] MEDS: ENOXAPARIN NA (PORCINE) 40 MG/0.4 ML DISP.SYRIN SQ SCH (10:02)
[2020-05-08] MEDS: LISINOPRIL 5 MG TABLET PO SCH (10:02)
[2020-05-08] MEDS: AMINO ACIDS/PROTEIN HYDROLYS 30 ML LIQUID.PKT PO SCH ×2 (10:02→16:44)
[2020-05-08] MEDS: ZINC SULFATE 220 MG CAPSULE (FP) PO SCH ×2 (10:03→22:48)
[2020-05-08] MEDS: DEXAMETHASONE 4 MG TABLET (FP) PO SCH (10:03)
[2020-05-08] MEDS: CHOLECALCIFEROL (VIT D3) 1,000 UNIT (25 MCG) TABLET PO SCH (10:03)
[2020-05-08] MEDS: ASCORBIC ACID 500 MG TABLET (FP) PO SCH ×2 (10:03→22:48)
[2020-05-08] MEDS: SILVER SULFADIAZINE 1% TOP CREAM 400 GM JAR TP SCH ×2 (10:03→22:48)
[2020-05-08] MEDS: TAMSULOSIN HCL 0.4 MG CAP PO SCH (10:03)
[2020-05-08] MEDS: HALOPERIDOL LACTATE 5 MG/ML IM PRN (13:54)
[2020-05-08] MEDS ORDERED: HALOPERIDOL LACTATE 5 MG/ML IM ONE (21:14)
[2020-05-08] MEDS: ATORVASTATIN CA 40 MG TABLET (FP) PO SCH (22:48)
[2020-05-09] MEDS: INSULIN SLIDING SCALE (NOVOLOG) 1 VIAL SQ SCH ×4 (06:43→22:51)
[2020-05-09] MEDS ORDERED: LORazepam 2 MG/ML SDV VIAL IM ONE (07:15)
[2020-05-09] MEDS: AMINO ACIDS/PROTEIN HYDROLYS 30 ML LIQUID.PKT PO SCH ×2 (09:20→17:04)
[2020-05-09] MEDS: TAMSULOSIN HCL 0.4 MG CAP PO SCH (09:20)
[2020-05-09] MEDS: ZINC SULFATE 220 MG CAPSULE (FP) PO SCH ×3 (09:20→22:58)
[2020-05-09] MEDS: CHOLECALCIFEROL (VIT D3) 1,000 UNIT (25 MCG) TABLET PO SCH (09:20)
[2020-05-09] MEDS: DEXAMETHASONE 4 MG TABLET (FP) PO SCH (09:21)
[2020-05-09] MEDS: ENOXAPARIN NA (PORCINE) 40 MG/0.4 ML DISP.SYRIN SQ SCH (09:21)
[2020-05-09] MEDS: LISINOPRIL 5 MG TABLET PO SCH (09:21)
[2020-05-09] MEDS: ASCORBIC ACID 500 MG TABLET (FP) PO SCH ×2 (09:22→22:58)
[2020-05-09] MEDS: SILVER SULFADIAZINE 1% TOP CREAM 400 GM JAR TP SCH ×2 (09:22→22:58)
[2020-05-09] MEDS: HALOPERIDOL LACTATE 5 MG/ML IM PRN (21:24)
[2020-05-09] MEDS: ATORVASTATIN CA 40 MG TABLET (FP) PO SCH (22:58)
[2020-05-10] MEDS: INSULIN SLIDING SCALE (NOVOLOG) 1 VIAL SQ SCH ×4 (06:36→21:41)
[2020-05-10] MEDS: AMINO ACIDS/PROTEIN HYDROLYS 30 ML LIQUID.PKT PO SCH ×2 (11:54→18:25)
[2020-05-10] MEDS: LISINOPRIL 5 MG TABLET PO SCH (11:55)
[2020-05-10] MEDS: SILVER SULFADIAZINE 1% TOP CREAM 400 GM JAR TP SCH ×2 (11:55→21:53)
[2020-05-10] MEDS: ZINC SULFATE 220 MG CAPSULE (FP) PO SCH ×2 (11:55→21:44)
[2020-05-10] MEDS: ASCORBIC ACID 500 MG TABLET (FP) PO SCH ×2 (11:55→21:44)
[2020-05-10] MEDS: TAMSULOSIN HCL 0.4 MG CAP PO SCH (11:55)
[2020-05-10] MEDS: CHOLECALCIFEROL (VIT D3) 1,000 UNIT (25 MCG) TABLET PO SCH (11:56)
[2020-05-10] MEDS: DEXAMETHASONE 4 MG TABLET (FP) PO SCH (12:17)
[2020-05-10] MEDS: ENOXAPARIN NA (PORCINE) 40 MG/0.4 ML DISP.SYRIN SQ SCH (12:20)
[2020-05-10] MEDS ORDERED: LIDOCAINE HCL 1%, 10 MG/ML (20ML VIAL) ONE (12:25)
[2020-05-10] MEDS: ATORVASTATIN CA 40 MG TABLET (FP) PO SCH (21:44)
[2020-05-11] MEDS: HALOPERIDOL LACTATE 5 MG/ML IM PRN (04:05)
[2020-05-11] MEDS: INSULIN SLIDING SCALE (NOVOLOG) 1 VIAL SQ SCH ×4 (06:52→21:27)
[2020-05-11] MEDS ORDERED: LORazepam 2 MG/ML SDV VIAL IM PRN (09:38)
[2020-05-11] MEDS: LISINOPRIL 5 MG TABLET PO SCH ×2 (09:46→09:53)
[2020-05-11] MEDS: AMINO ACIDS/PROTEIN HYDROLYS 30 ML LIQUID.PKT PO SCH ×3 (09:46→16:53)
[2020-05-11] MEDS: ASCORBIC ACID 500 MG TABLET (FP) PO SCH ×3 (09:46→21:28)
[2020-05-11] MEDS: CHOLECALCIFEROL (VIT D3) 1,000 UNIT (25 MCG) TABLET PO SCH ×2 (09:47→09:53)
[2020-05-11] MEDS: SILVER SULFADIAZINE 1% TOP CREAM 400 GM JAR TP SCH ×3 (09:47→21:28)
[2020-05-11] MEDS: TAMSULOSIN HCL 0.4 MG CAP PO SCH ×2 (09:47→09:53)
[2020-05-11] MEDS: ZINC SULFATE 220 MG CAPSULE (FP) PO SCH ×2 (09:47→21:28)
[2020-05-11] MEDS: LORazepam 2 MG/ML SDV VIAL IM PRN (16:09)
[2020-05-11] MEDS: ATORVASTATIN CA 40 MG TABLET (FP) PO SCH (21:27)
[2020-05-12] MEDS: LORazepam 2 MG/ML SDV VIAL IM PRN ×2 (02:03→18:20)
[2020-05-12] MEDS: INSULIN SLIDING SCALE (NOVOLOG) 1 VIAL SQ SCH ×4 (06:03→22:57)
[2020-05-12] MEDS: ZINC SULFATE 220 MG CAPSULE (FP) PO SCH ×2 (11:11→23:04)
[2020-05-12] MEDS: TAMSULOSIN HCL 0.4 MG CAP PO SCH (11:11)
[2020-05-12] MEDS: AMINO ACIDS/PROTEIN HYDROLYS 30 ML LIQUID.PKT PO SCH ×2 (11:11→18:19)
[2020-05-12] MEDS: SILVER SULFADIAZINE 1% TOP CREAM 400 GM JAR TP SCH ×2 (11:12→23:04)
[2020-05-12] MEDS: ASCORBIC ACID 500 MG TABLET (FP) PO SCH ×2 (11:12→23:04)
[2020-05-12] MEDS: CHOLECALCIFEROL (VIT D3) 1,000 UNIT (25 MCG) TABLET PO SCH (11:12)
[2020-05-12] MEDS: LISINOPRIL 5 MG TABLET PO SCH (11:12)
[2020-05-12] MEDS: ATORVASTATIN CA 40 MG TABLET (FP) PO SCH (23:04)
[2020-05-12] MEDS: risperiDONE 0.25 MG TABLET PO SCH (23:05)
[2020-05-13] MEDS: INSULIN SLIDING SCALE (NOVOLOG) 1 VIAL SQ SCH ×4 (06:00→22:08)
[2020-05-13 08:01] LABS: BASO % 0.5 % (0-2.0); HEMATOCRIT 39.2 % (35.4-49); HEMOGLOBIN 13.6 GM/dL (11.7-16.9); LYMPH % 26.2 % (8-40); MCH 31.9 pg (25.7-33.7); MCHC 34.7 g/dl (32.0-35.9); MEAN CELL VOLUME 92.1 fl (80-96); MEAN PLT VOLUME 8.2 fl (7.5-11.1); MONO % 8.8 % (3.8-10.2); NEUT % 63.5 % (42.8-82.8); PLATELET COUNT 249 K/MM3 (134-434); RBC 4.26 M/mm3 (4.00-5.60); RDW 14.6 % (11.9-15.9); WHITE BLOOD COUNT 10.6 K/mm3 (4.0-10.0)
[2020-05-13 08:05] LABS: POTASSIUM 4.4 mmol/L (3.5-5.1)
[2020-05-13 08:15] LABS: ALBUMIN 3.2 g/dl (3.4-5.0); BLOOD UREA NITROGEN 36.9 mg/dL (7-18); CALCIUM 8.8 mg/dL (8.5-10.1)
[2020-05-13 08:18] LABS: BILIRUBIN,TOTAL 1.3 mg/dL (0.2-1); CREATININE 0.9 mg/dL (0.55-1.3); TOT PROT 7.3 g/dl (6.4-8.2)
[2020-05-13 09:08] LABS: ANISOCYTOSIS 0; MACROCYTOSIS 0; PLATELET ESTIMATE NORMAL
[2020-05-13] MEDS: LORazepam 2 MG/ML SDV VIAL IM PRN (09:08)
[2020-05-13 11:18] LABS: INR 1.13 (0.83-1.09); PROTHROMBIN TIME (PATIENT) 13.8 SEC (9.7-13.0)
[2020-05-13 11:20] LABS: ACTIVATED PTT 29.7 SECONDS (25.2-36.5)
[2020-05-13] MEDS: AMINO ACIDS/PROTEIN HYDROLYS 30 ML LIQUID.PKT PO SCH ×2 (12:01→17:42)
[2020-05-13] MEDS: ZINC SULFATE 220 MG CAPSULE (FP) PO SCH ×2 (12:01→22:14)
[2020-05-13] MEDS: risperiDONE 0.25 MG TABLET PO SCH ×2 (12:01→22:08)
[2020-05-13] MEDS: SILVER SULFADIAZINE 1% TOP CREAM 400 GM JAR TP SCH ×2 (12:02→21:58)
[2020-05-13] MEDS: CHOLECALCIFEROL (VIT D3) 1,000 UNIT (25 MCG) TABLET PO SCH (12:02)
[2020-05-13] MEDS: ASCORBIC ACID 500 MG TABLET (FP) PO SCH ×2 (12:02→22:14)
[2020-05-13] MEDS: LISINOPRIL 5 MG TABLET PO SCH (12:02)
[2020-05-13] MEDS: TAMSULOSIN HCL 0.4 MG CAP PO SCH (12:02)
[2020-05-13] MEDS: ATORVASTATIN CA 40 MG TABLET (FP) PO SCH (22:08)
[2020-05-14] MEDS: INSULIN SLIDING SCALE (NOVOLOG) 1 VIAL SQ SCH ×4 (07:22→20:59)
[2020-05-14] MEDS ORDERED: PT OWN MED DRAWER 7, Y5N ONE ×2 (09:16→19:55)
[2020-05-14] MEDS: ZINC SULFATE 220 MG CAPSULE (FP) PO SCH ×2 (09:17→20:59)
[2020-05-14] MEDS: CHOLECALCIFEROL (VIT D3) 1,000 UNIT (25 MCG) TABLET PO SCH (09:17)
[2020-05-14] MEDS: LISINOPRIL 5 MG TABLET PO SCH (09:17)
[2020-05-14] MEDS: AMINO ACIDS/PROTEIN HYDROLYS 30 ML LIQUID.PKT PO SCH ×2 (09:17→17:18)
[2020-05-14] MEDS: risperiDONE 0.25 MG TABLET PO SCH ×2 (09:17→20:59)
[2020-05-14] MEDS: ASCORBIC ACID 500 MG TABLET (FP) PO SCH ×2 (09:17→20:59)
[2020-05-14] MEDS: TAMSULOSIN HCL 0.4 MG CAP PO SCH (09:17)
[2020-05-14] MEDS: SILVER SULFADIAZINE 1% TOP CREAM 400 GM JAR TP SCH ×2 (09:18→20:59)
[2020-05-14] MEDS: ATORVASTATIN CA 40 MG TABLET (FP) PO SCH (20:59)
[2020-05-15] MEDS: INSULIN SLIDING SCALE (NOVOLOG) 1 VIAL SQ SCH ×4 (06:18→22:02)
[2020-05-15] MEDS ORDERED: PT OWN MED DRAWER 7, Y5N ONE (10:40)
[2020-05-15] MEDS: CHOLECALCIFEROL (VIT D3) 1,000 UNIT (25 MCG) TABLET PO SCH (10:42)
[2020-05-15] MEDS: LISINOPRIL 5 MG TABLET PO SCH (10:42)
[2020-05-15] MEDS: ASCORBIC ACID 500 MG TABLET (FP) PO SCH ×2 (10:42→21:44)
[2020-05-15] MEDS: TAMSULOSIN HCL 0.4 MG CAP PO SCH (10:42)
[2020-05-15] MEDS: ZINC SULFATE 220 MG CAPSULE (FP) PO SCH ×2 (10:42→21:44)
[2020-05-15] MEDS: AMINO ACIDS/PROTEIN HYDROLYS 30 ML LIQUID.PKT PO SCH ×2 (10:43→17:33)
[2020-05-15] MEDS: risperiDONE 0.25 MG TABLET PO SCH (10:43)
[2020-05-15] MEDS: SILVER SULFADIAZINE 1% TOP CREAM 400 GM JAR TP SCH ×2 (11:32→21:45)
[2020-05-15] MEDS: OLANZapine 10 MG TABLET PO SCH (21:44)
[2020-05-15] MEDS: ATORVASTATIN CA 40 MG TABLET (FP) PO SCH (21:44)
[2020-05-16] MEDS: INSULIN SLIDING SCALE (NOVOLOG) 1 VIAL SQ SCH ×4 (06:24→22:52)
[2020-05-16] MEDS: ASCORBIC ACID 500 MG TABLET (FP) PO SCH ×2 (10:09→22:52)
[2020-05-16] MEDS: AMINO ACIDS/PROTEIN HYDROLYS 30 ML LIQUID.PKT PO SCH ×2 (10:09→17:47)
[2020-05-16] MEDS: LISINOPRIL 5 MG TABLET PO SCH (10:10)
[2020-05-16] MEDS: SILVER SULFADIAZINE 1% TOP CREAM 400 GM JAR TP SCH ×2 (10:10→22:52)
[2020-05-16] MEDS: ZINC SULFATE 220 MG CAPSULE (FP) PO SCH ×2 (10:10→22:52)
[2020-05-16] MEDS: TAMSULOSIN HCL 0.4 MG CAP PO SCH (10:10)
[2020-05-16] MEDS: CHOLECALCIFEROL (VIT D3) 1,000 UNIT (25 MCG) TABLET PO SCH (10:10)
[2020-05-16] MEDS: ATORVASTATIN CA 40 MG TABLET (FP) PO SCH (22:52)
[2020-05-16] MEDS: OLANZapine 10 MG TABLET PO SCH (22:52)
[2020-05-17] MEDS: INSULIN SLIDING SCALE (NOVOLOG) 1 VIAL SQ SCH ×2 (06:48→10:24)
[2020-05-17] MEDS: SILVER SULFADIAZINE 1% TOP CREAM 400 GM JAR TP SCH (09:56)
[2020-05-17] MEDS: ASCORBIC ACID 500 MG TABLET (FP) PO SCH (09:57)
[2020-05-17] MEDS: LISINOPRIL 5 MG TABLET PO SCH (09:57)
[2020-05-17] MEDS: ZINC SULFATE 220 MG CAPSULE (FP) PO SCH (09:57)
[2020-05-17] MEDS: TAMSULOSIN HCL 0.4 MG CAP PO SCH (09:57)
[2020-05-17] MEDS: CHOLECALCIFEROL (VIT D3) 1,000 UNIT (25 MCG) TABLET PO SCH (09:57)
[2020-05-17] MEDS: AMINO ACIDS/PROTEIN HYDROLYS 30 ML LIQUID.PKT PO SCH (09:57)
[2020-05-17 13:35] VITALS: BP 107/75; PULSE 87; TEMP 97.9
== END 2020-05-17 15:36 | DRG 177 ==
LOC: JER 11:50 → JERBED 21:15 → J4S 04-25 19:19 → J5S 05-02 23:55 → J7W 05-06 12:32
PROVIDERS: ADMIT Internal Medicine; ATTEND Internal Medicine
PROC: XW13325 Transfusion of Convalescent Plasma (Nonautologous) into Peripheral Vein, Percutaneous Approach, New Technology Group 5 (ICD-10-PCS; principal; 2020-04-26)
PROC: XW033E5 Introduction of Remdesivir Anti-infective into Peripheral Vein, Percutaneous Approach, New Technology Group 5 (ICD-10-PCS; 2020-04-26)
DX: U07.1 COVID-19 (principal); J12.82 Pneumonia due to coronavirus disease 2019; G93.41 Metabolic encephalopathy; E11.9 Type 2 diabetes mellitus without complications; E78.5 Hyperlipidemia, unspecified; N40.0 Benign prostatic hyperplasia without lower urinary tract symptoms; F17.210 Nicotine dependence, cigarettes, uncomplicated; R09.02 Hypoxemia; K21.9 Gastro-esophageal reflux disease without esophagitis; K29.70 Gastritis, unspecified, without bleeding; Z96.659 Presence of unspecified artificial knee joint; E66.9 Obesity, unspecified; Z68.31 Body mass index [BMI] 31.0-31.9, adult; D72.829 Elevated white blood cell count, unspecified; R00.0 Tachycardia, unspecified; R94.5 Abnormal results of liver function studies; R45.1 Restlessness and agitation; W18.39XA Other fall on same level, initial encounter; Y92.238 Other place in hospital as the place of occurrence of the external cause
CPT/HCPCS: 36415; 36430; 70450-TC; 71046-TC-FY; 71250-TC; 73523-TC-FY; 74176-TC; 80053; 80061; 80164; 80307; 81003; 82140; 82550; 82553; 82607; 82728; 82747; 82962; 83036; 83605; 83721; 83735; 83880; 84100; 84443; 84484; 85014; 85025; 85379; 85610; 85730; 86078; 86140; 86850; 86900; 86901; 87040; 87077; 87086; 87186; 93005; 93010; 97116-GP; 97161-GP; 99285-25; C9399; C9803; J0131; P9017; U0003

== ENCOUNTER 2022-04-03 10:17 | Inpatient (IN) | payer OTHER ==
[2022-04-03 11:47] LABS: VENOUS BASE EXCESS 1.6 mmol/L (-2-2); VENOUS O2 SATURATION 45.8 % (70-80); VENOUS PCO2 46.5 mmHg (38-52); VENOUS PH 7.384 (7.310-7.410)
[2022-04-03 12:09] LABS: BASO % 0.6 % (0-2.0); EOS % 0.2 % (0-4.5); HEMATOCRIT 31.4 % (35.4-49); HEMOGLOBIN 10.7 GM/dL (11.7-16.9); LYMPH % 19.5 % (8-40); MCH 31.7 pg (25.7-33.7); MEAN CELL VOLUME 93.4 fl (80-96); MEAN PLT VOLUME 7.4 fl (7.5-11.1); NEUT % 66.7 % (42.8-82.8); PLATELET COUNT 171 10^3/uL (134-434); RBC 3.37 M/mm3 (4.00-5.60); RDW 13.9 % (11.9-15.9); WHITE BLOOD COUNT 9.8 K/mm3 (4.0-10.0)
[2022-04-03 12:23] LABS: INR 1.41 (0.83-1.09); PROTHROMBIN TIME (PATIENT) 16.3 SEC (9.7-13.0)
[2022-04-03 12:25] LABS: ACTIVATED PTT 31.9 SECONDS (25.2-36.5)
[2022-04-03 12:26] LABS: CHLORIDE 98 mmol/L (98-107); SODIUM 136 mmol/L (136-145)
[2022-04-03 12:28] LABS: CALCIUM 8.8 mg/dL (8.5-10.1)
[2022-04-03 12:29] LABS: ALBUMIN 3.4 g/dl (3.4-5.0); ANION GAP 11 MMOL/L (8-16); BLOOD UREA NITROGEN 15.3 mg/dL (7-18); CO2 26 mmol/L (21-32); GLUCOSE,RANDOM 123 mg/dL (74-106)
[2022-04-03 12:32] LABS: CREATININE 1.1 mg/dL (0.55-1.3); SGOT/AST 28 U/L (15-37); SGPT/ALT 24 U/L (13-61)
[2022-04-03 12:34] LABS: BILIRUBIN,TOTAL 0.9 mg/dL (0.2-1); TOT PROT 8.1 g/dl (6.4-8.2)
[2022-04-03 12:35] LABS: ALK PHOS 156 U/L (45-117)
[2022-04-03] MEDS ORDERED: OLANZapine 5 MG TABLET PO ONE (13:43)
[2022-04-03] MEDS ORDERED: OLANZapine 10 MG TABLET ONE (13:47)
[2022-04-03 15:10] LABS: EPI CELLS 5 /uL (0-25.1); HYALINE CASTS 1 /uL (0-3.1); PH,URINE 5.5 (5.0-8.0); URINE APPEARANCE TURBID; URINE BACTERIA >9,000 /uL (0-1359); URINE BILIRUBIN NEGATIVE (NEGATIVE); URINE COLOR YELLOW; URINE GLUCOSE (UA) NEGATIVE (NEGATIVE); URINE KETONE NEGATIVE (NEGATIVE); URINE LEUK ESTERASE 3+ (NEGATIVE); URINE NITRITE NEGATIVE (NEGATIVE); URINE PROTEIN 2+ (NEGATIVE); URINE RBC 182 /uL (0-23.9); URINE WBC 9054 /uL (0-25.8)
[2022-04-03] MEDS ORDERED: MIDAZOLAM HCL 2 MG/2 ML SINGLE DOSE VIAL IVPUSH ONE ×2 (15:36→16:06)
[2022-04-03] MEDS ORDERED: MIDAZOLAM HCL 2 MG/2 ML SINGLE DOSE VIAL ONE ×2 (15:39→16:16)
[2022-04-03 15:48] LABS: YEAST NONE SEEN (NEGATIVE)
[2022-04-03] MEDS ORDERED: CEFTRIAXONE 1,000 MG in DEXTROSE 5%-WATER - 50 ML IVPB ONE (16:08)
[2022-04-03] MEDS ORDERED: CEFTRIAXONE 1 GM/50 ML BAG ONE (16:18)
[2022-04-03] MEDS ORDERED: OSELTAMIVIR PHOSPHATE 75 MG CAPSULE PO ONE (17:47)
[2022-04-03] MEDS ORDERED: SODIUM CHLORIDE 1,000 ML IV STA (18:39)
[2022-04-03] MEDS ORDERED: ACETAMINOPHEN 1000 MG/100 ML BAG IVPB ONE (18:41)
[2022-04-03] MEDS ORDERED: ACETAMINOPHEN INJECTION 100 ML IVPB ONE (18:43)
[2022-04-04] MEDS: PIPERACILLIN/TAZOB 3.375 GM 3.375 GM in DEXTROSE 5%-WATER - 50 ML IVPB SCH ×3 (04:13→17:51)
[2022-04-04] MEDS: DEXTROSE 5%-0.45% SALINE 1,000 ML IV SCH ×2 (05:00→21:34)
[2022-04-04] MEDS: INSULIN SLIDING SCALE (NOVOLOG) 1 VIAL SQ SCH ×4 (07:15→21:36)
[2022-04-04 08:06] LABS: CALCIUM 8.3 mg/dL (8.5-10.1)
[2022-04-04 08:07] LABS: BLOOD UREA NITROGEN 18.6 mg/dL (7-18)
[2022-04-04 08:10] LABS: CREATININE 1.1 mg/dL (0.55-1.3)
[2022-04-04 08:12] LABS: BILIRUBIN,TOTAL 1.4 mg/dL (0.2-1); TOT PROT 7.4 g/dl (6.4-8.2)
[2022-04-04 08:15] LABS: BASO % 0.5 % (0-2.0); EOS % 0.1 % (0-4.5); HEMATOCRIT 30.9 % (35.4-49); HEMOGLOBIN 10.2 GM/dL (11.7-16.9); LYMPH % 6.9 % (8-40); MCHC 33.1 g/dl (32.0-35.9); MEAN CELL VOLUME 93.4 fl (80-96); MEAN PLT VOLUME 7.7 fl (7.5-11.1); MONO % 9.2 % (3.8-10.2); NEUT % 83.3 % (42.8-82.8); PLATELET COUNT 160 10^3/uL (134-434); RBC 3.31 M/mm3 (4.00-5.60); RDW 13.9 % (11.9-15.9); WHITE BLOOD COUNT 9.9 K/mm3 (4.0-10.0)
[2022-04-04] MEDS ORDERED: ACETAMINOPHEN 325 MG TABLET (FP) PO PRN (09:51)
[2022-04-04] MEDS ORDERED: QUEtiapine FUMARATE 25 MG TABLET PO ONE ×2 (10:00)
[2022-04-04] MEDS: LISINOPRIL 5 MG TABLET PO SCH (10:05)
[2022-04-04] MEDS: TAMSULOSIN HCL 0.4 MG CAP PO SCH (10:05)
[2022-04-04] MEDS: HEPARIN NA (PORCINE) 5,000 UNITS/ML 1ML VIAL SQ SCH ×2 (10:44→21:35)
[2022-04-04] MEDS: CEFTRIAXONE 1 GM in DEXTROSE 5%-WATER - 50 ML IVPB SCH ×2 (10:45→12:25)
[2022-04-04] MEDS ORDERED: LORazepam 2 MG/ML SDV VIAL IVPUSH ONE (11:30)
[2022-04-04] MEDS: OLANZapine 10 MG TABLET PO SCH (21:35)
[2022-04-04] MEDS: ATORVASTATIN CA 40 MG TABLET (FP) PO SCH (21:35)
[2022-04-05] MEDS: PIPERACILLIN/TAZOB 3.375 GM 3.375 GM in DEXTROSE 5%-WATER - 50 ML IVPB SCH ×2 (01:49→10:15)
[2022-04-05] MEDS: DEXTROSE 5%-0.45% SALINE 1,000 ML IV SCH (06:07)
[2022-04-05] MEDS: INSULIN SLIDING SCALE (NOVOLOG) 1 VIAL SQ SCH ×4 (06:08→22:14)
[2022-04-05] MEDS: HEPARIN NA (PORCINE) 5,000 UNITS/ML 1ML VIAL SQ SCH (10:14)
[2022-04-05] MEDS: LISINOPRIL 5 MG TABLET PO SCH (10:15)
[2022-04-05] MEDS: TAMSULOSIN HCL 0.4 MG CAP PO SCH (10:15)
[2022-04-05 13:12] VITALS: BMI 31.6
[2022-04-05] MEDS ORDERED: INSULIN (NOVOLOG) ASPART 100 UNITS/ML 10ML VIAL ONE (15:57)
[2022-04-05] MEDS: MEROPENEM 1 GM in DEXTROSE 5%-WATER 100 ML IVPB SCH (17:54)
[2022-04-06] MEDS: ATORVASTATIN CA 40 MG TABLET (FP) PO SCH ×2 (00:10→23:26)
[2022-04-06] MEDS: OLANZapine 10 MG TABLET PO SCH ×2 (00:10→23:26)
[2022-04-06] MEDS: HEPARIN NA (PORCINE) 5,000 UNITS/ML 1ML VIAL SQ SCH ×3 (00:11→23:23)
[2022-04-06] MEDS: MEROPENEM 1 GM in DEXTROSE 5%-WATER 100 ML IVPB SCH ×3 (03:02→18:13)
[2022-04-06] MEDS: DEXTROSE 5%-0.45% SALINE 1,000 ML IV SCH ×2 (04:00→23:18)
[2022-04-06] MEDS: INSULIN SLIDING SCALE (NOVOLOG) 1 VIAL SQ SCH ×4 (08:48→23:26)
[2022-04-06] MEDS: TAMSULOSIN HCL 0.4 MG CAP PO SCH (09:03)
[2022-04-06] MEDS: LISINOPRIL 5 MG TABLET PO SCH (09:03)
[2022-04-06] MEDS ORDERED: LORazepam 2 MG/ML SDV VIAL IVPUSH ONE ×2 (13:30→13:45)
[2022-04-07] MEDS: MEROPENEM 1 GM in DEXTROSE 5%-WATER 100 ML IVPB SCH ×3 (01:00→17:42)
[2022-04-07] MEDS: DEXTROSE 5%-0.45% SALINE 1,000 ML IV SCH (04:45)
[2022-04-07] MEDS: INSULIN SLIDING SCALE (NOVOLOG) 1 VIAL SQ SCH ×4 (06:53→23:13)
[2022-04-07] MEDS: TAMSULOSIN HCL 0.4 MG CAP PO SCH (09:18)
[2022-04-07] MEDS: LISINOPRIL 5 MG TABLET PO SCH (09:18)
[2022-04-07] MEDS: HEPARIN NA (PORCINE) 5,000 UNITS/ML 1ML VIAL SQ SCH ×2 (09:22→23:08)
[2022-04-07 10:35] LABS: BASO % 1.2 % (0-2.0); EOS % 4.6 % (0-4.5); HEMATOCRIT 29.1 % (35.4-49); HEMOGLOBIN 9.7 GM/dL (11.7-16.9); LYMPH % 33.1 % (8-40); MCH 31.1 pg (25.7-33.7); MCHC 33.5 g/dl (32.0-35.9); MEAN PLT VOLUME 7.8 fl (7.5-11.1); NEUT % 52.1 % (42.8-82.8); PLATELET COUNT 205 10^3/uL (134-434); RBC 3.13 M/mm3 (4.00-5.60); RDW 14.1 % (11.9-15.9); WHITE BLOOD COUNT 4.1 K/mm3 (4.0-10.0)
[2022-04-07 11:02] LABS: BLOOD UREA NITROGEN 10.7 mg/dL (7-18); CALCIUM 8.2 mg/dL (8.5-10.1)
[2022-04-07 11:03] LABS: ALBUMIN 2.7 g/dl (3.4-5.0)
[2022-04-07 11:05] LABS: CREATININE 0.9 mg/dL (0.55-1.3)
[2022-04-07 11:07] LABS: BILIRUBIN,TOTAL 0.5 mg/dL (0.2-1); TOT PROT 6.8 g/dl (6.4-8.2)
[2022-04-07] MEDS: LORazepam 2 MG/ML SDV VIAL IVPB PRN (14:53)
[2022-04-07] MEDS: ATORVASTATIN CA 40 MG TABLET (FP) PO SCH (23:13)
[2022-04-07] MEDS: OLANZapine 10 MG TABLET PO SCH (23:13)
[2022-04-08] MEDS: MEROPENEM 1 GM in DEXTROSE 5%-WATER 100 ML IVPB SCH ×3 (01:57→18:45)
[2022-04-08] MEDS: DEXTROSE 5%-0.45% SALINE 1,000 ML IV SCH (03:30)
[2022-04-08] MEDS: INSULIN SLIDING SCALE (NOVOLOG) 1 VIAL SQ SCH ×4 (06:43→22:38)
[2022-04-08] MEDS: HEPARIN NA (PORCINE) 5,000 UNITS/ML 1ML VIAL SQ SCH ×2 (10:17→22:36)
[2022-04-08] MEDS: LISINOPRIL 5 MG TABLET PO SCH (10:17)
[2022-04-08] MEDS: TAMSULOSIN HCL 0.4 MG CAP PO SCH (10:17)
[2022-04-08] MEDS: ATORVASTATIN CA 40 MG TABLET (FP) PO SCH (22:36)
[2022-04-08] MEDS: OLANZapine 10 MG TABLET PO SCH (22:36)
[2022-04-09] MEDS: MEROPENEM 1 GM in DEXTROSE 5%-WATER 100 ML IVPB SCH ×3 (01:33→18:47)
[2022-04-09] MEDS: INSULIN SLIDING SCALE (NOVOLOG) 1 VIAL SQ SCH ×4 (06:07→22:07)
[2022-04-09] MEDS: LISINOPRIL 5 MG TABLET PO SCH (12:38)
[2022-04-09] MEDS: HEPARIN NA (PORCINE) 5,000 UNITS/ML 1ML VIAL SQ SCH ×2 (12:38→22:06)
[2022-04-09] MEDS: TAMSULOSIN HCL 0.4 MG CAP PO SCH (12:38)
[2022-04-09] MEDS: LORazepam 2 MG/ML SDV VIAL IVPB PRN (15:06)
[2022-04-09] MEDS: ATORVASTATIN CA 40 MG TABLET (FP) PO SCH (22:06)
[2022-04-09] MEDS: LORazepam 0.5 MG TABLET PO PRN (22:06)
[2022-04-09] MEDS: OLANZapine 10 MG TABLET PO SCH (22:06)
[2022-04-10] MEDS: MEROPENEM 1 GM in DEXTROSE 5%-WATER 100 ML IVPB SCH ×3 (02:04→17:02)
[2022-04-10] MEDS: INSULIN SLIDING SCALE (NOVOLOG) 1 VIAL SQ SCH ×4 (06:04→23:24)
[2022-04-10 08:45] LABS: BASO % 0.9 % (0-2.0); EOS % 4.9 % (0-4.5); HEMATOCRIT 37.1 % (35.4-49); HEMOGLOBIN 12.1 GM/dL (11.7-16.9); LYMPH % 34.3 % (8-40); MCH 30.6 pg (25.7-33.7); MCHC 32.6 g/dl (32.0-35.9); MEAN PLT VOLUME 7.4 fl (7.5-11.1); MONO % 10.6 % (3.8-10.2); NEUT % 49.3 % (42.8-82.8); PLATELET COUNT 213 10^3/uL (134-434); RBC 3.95 M/mm3 (4.00-5.60); RDW 14.3 % (11.9-15.9); WHITE BLOOD COUNT 7.1 K/mm3 (4.0-10.0)
[2022-04-10 08:48] LABS: BLOOD UREA NITROGEN 15.5 mg/dL (7-18); CALCIUM 8.7 mg/dL (8.5-10.1)
[2022-04-10 08:49] LABS: ALBUMIN 3.1 g/dl (3.4-5.0)
[2022-04-10 08:52] LABS: CREATININE 0.7 mg/dL (0.55-1.3)
[2022-04-10 08:53] LABS: BILIRUBIN,TOTAL 0.7 mg/dL (0.2-1); TOT PROT 7.8 g/dl (6.4-8.2)
[2022-04-10] MEDS: LISINOPRIL 5 MG TABLET PO SCH (10:41)
[2022-04-10] MEDS: TAMSULOSIN HCL 0.4 MG CAP PO SCH (10:41)
[2022-04-10] MEDS: HEPARIN NA (PORCINE) 5,000 UNITS/ML 1ML VIAL SQ SCH ×2 (10:41→23:21)
[2022-04-10] MEDS: LORazepam 0.5 MG TABLET PO PRN ×2 (17:08→23:21)
[2022-04-10] MEDS: OLANZapine 10 MG TABLET PO SCH (23:21)
[2022-04-10] MEDS: ATORVASTATIN CA 40 MG TABLET (FP) PO SCH (23:21)
[2022-04-11] MEDS: MEROPENEM 1 GM in DEXTROSE 5%-WATER 100 ML IVPB SCH ×3 (02:59→17:14)
[2022-04-11] MEDS: INSULIN SLIDING SCALE (NOVOLOG) 1 VIAL SQ SCH ×4 (06:43→21:39)
[2022-04-11] MEDS: TAMSULOSIN HCL 0.4 MG CAP PO SCH (10:24)
[2022-04-11] MEDS: LISINOPRIL 5 MG TABLET PO SCH (10:24)
[2022-04-11] MEDS: LORazepam 0.5 MG TABLET PO PRN ×2 (13:15→21:38)
[2022-04-11] MEDS ORDERED: INSULIN (NOVOLOG) ASPART 100 UNITS/ML 10ML VIAL ONE (21:08)
[2022-04-11] MEDS: ATORVASTATIN CA 40 MG TABLET (FP) PO SCH (21:38)
[2022-04-11] MEDS: OLANZapine 10 MG TABLET PO SCH (21:38)
[2022-04-12] MEDS: MEROPENEM 1 GM in DEXTROSE 5%-WATER 100 ML IVPB SCH ×3 (01:51→17:48)
[2022-04-12] MEDS: INSULIN SLIDING SCALE (NOVOLOG) 1 VIAL SQ SCH ×4 (06:13→23:09)
[2022-04-12] MEDS: TAMSULOSIN HCL 0.4 MG CAP PO SCH (11:05)
[2022-04-12] MEDS: LISINOPRIL 5 MG TABLET PO SCH (11:05)
[2022-04-12] MEDS: LORazepam 0.5 MG TABLET PO PRN (19:01)
[2022-04-12] MEDS: OLANZapine 10 MG TABLET PO SCH (23:08)
[2022-04-12] MEDS: ATORVASTATIN CA 40 MG TABLET (FP) PO SCH (23:09)
[2022-04-13] MEDS: MEROPENEM 1 GM in DEXTROSE 5%-WATER 100 ML IVPB SCH ×3 (01:45→17:54)
[2022-04-13] MEDS: INSULIN SLIDING SCALE (NOVOLOG) 1 VIAL SQ SCH ×3 (06:42→16:47)
[2022-04-13 06:52] VITALS: RESP 18
[2022-04-13] MEDS: LORazepam 0.5 MG TABLET PO PRN (08:40)
[2022-04-13] MEDS: TAMSULOSIN HCL 0.4 MG CAP PO SCH (08:43)
[2022-04-13] MEDS: LISINOPRIL 5 MG TABLET PO SCH (09:16)
[2022-04-13 14:40] VITALS: BP 107/61; PULSE 86; TEMP 98.1
== END 2022-04-13 19:05 | DRG 689 ==
LOC: JER 10:17 → JERBED 11:16 → J7W 04-04 01:42
PROVIDERS: ADMIT Internal Medicine; ATTEND Internal Medicine
PROC: 02HV33Z Insertion of Infusion Device into Superior Vena Cava, Percutaneous Approach (ICD-10-PCS; principal; 2022-04-13)
PROC: B518ZZA Fluoroscopy of Superior Vena Cava, Guidance (ICD-10-PCS; 2022-04-13)
DX: N39.0 Urinary tract infection, site not specified (principal); G93.41 Metabolic encephalopathy; R78.81 Bacteremia; E78.5 Hyperlipidemia, unspecified; E11.9 Type 2 diabetes mellitus without complications; K21.9 Gastro-esophageal reflux disease without esophagitis; I10 Essential (primary) hypertension; F17.210 Nicotine dependence, cigarettes, uncomplicated; B96.20 Unspecified Escherichia coli [E. coli] as the cause of diseases classified elsewhere; R32 Unspecified urinary incontinence; F03.90 Unspecified dementia, unspecified severity, without behavioral disturbance, psychotic disturbance, mood disturbance, and anxiety; N40.0 Benign prostatic hyperplasia without lower urinary tract symptoms; R41.82 Altered mental status, unspecified
CPT/HCPCS: 0241U-QW; 36415; 36569; 70450-TC; 71045-TC-FY; 71260-TC; 72125-TC; 72128-TC; 72131-TC; 74177-TC; 80053; 81003; 82550; 82553; 82803; 82962; 83605; 84443; 84484; 85025; 85610; 85730; 86850; 86900; 86901; 87040; 87086; 87186; 93005; 93010; 97116-GP; 97162-GP; 99291; C9803-CS; J1644; Q9967; U0003; U0005

== ENCOUNTER 2023-05-23 13:55 | Inpatient (IN) | payer OTHER ==
[2023-05-23 14:15] VITALS: BMI 25.0
[2023-05-23] MEDS: LORazepam 2 MG/ML SDV VIAL IM ONE (15:37)
[2023-05-23 16:02] LABS: LACTIC ACID 2.1 mmol/L (0.4-2.0)
[2023-05-23 16:06] LABS: BASO % 0.6 % (0-2.0); EOS % 0.7 % (0-4.5); HEMATOCRIT 27.9 % (35.4-49); HEMOGLOBIN 9.3 GM/dL (11.7-16.9); LYMPH % 31.3 % (8-40); MCHC 33.4 g/dl (32.0-35.9); MEAN CELL VOLUME 95.6 fl (80-96); MEAN PLT VOLUME 8.4 fl (7.5-11.1); MONO % 5.5 % (3.8-10.2); NEUT % 61.9 % (42.8-82.8); PLATELET COUNT 168 10^3/uL (134-434); RBC 2.92 M/mm3 (4.00-5.60); RDW 14.8 % (11.9-15.9); WHITE BLOOD COUNT 5.5 K/mm3 (4.0-10.0)
[2023-05-23 16:42] LABS: PH,URINE 5.5 (5.0-8.0); URINE APPEARANCE CLEAR; URINE BILIRUBIN NEGATIVE (NEGATIVE); URINE COLOR YELLOW; URINE GLUCOSE (UA) NEGATIVE (NEGATIVE); URINE KETONE NEGATIVE (NEGATIVE); URINE LEUK ESTERASE NEGATIVE (NEGATIVE); URINE NITRITE NEGATIVE (NEGATIVE); URINE PROTEIN NEGATIVE (NEGATIVE)
[2023-05-23 17:37] LABS: ALBUMIN 3.7 g/dl (3.4-5.0); CALCIUM 8.9 mg/dL (8.5-10.1)
[2023-05-23 17:38] LABS: BLOOD UREA NITROGEN 43.4 mg/dL (7-18)
[2023-05-23 17:41] LABS: CREATININE 1.2 mg/dL (0.55-1.3)
[2023-05-23 17:42] LABS: BILIRUBIN,TOTAL 0.5 mg/dL (0.2-1); TOT PROT 8.5 g/dl (6.4-8.2)
[2023-05-23] MEDS: SODIUM CHLORIDE 0.9% 500 ML INFUS.BAG IV ONE (20:31)
[2023-05-24] MEDS: SODIUM CHLORIDE 1,000 ML IV SCH (03:10)
[2023-05-24] MEDS ORDERED: LORazepam 2 MG/ML SDV VIAL IVPUSH PRN (05:20)
[2023-05-24 07:38] LABS: BASO % 0.4 % (0-2.0); EOS % 1.2 % (0-4.5); HEMATOCRIT 29.3 % (35.4-49); HEMOGLOBIN 10.2 GM/dL (11.7-16.9); LYMPH % 39.7 % (8-40); MCH 32.9 pg (25.7-33.7); MCHC 34.8 g/dl (32.0-35.9); MEAN CELL VOLUME 94.5 fl (80-96); MEAN PLT VOLUME 8.5 fl (7.5-11.1); MONO % 6.4 % (3.8-10.2); NEUT % 52.3 % (42.8-82.8); PLATELET COUNT 173 10^3/uL (134-434); RDW 14.2 % (11.9-15.9); WHITE BLOOD COUNT 6.5 K/mm3 (4.0-10.0)
[2023-05-24 07:53] LABS: POTASSIUM 4.3 mmol/L (3.5-5.1)
[2023-05-24 08:27] LABS: ALBUMIN 3.7 g/dl (3.4-5.0); BLOOD UREA NITROGEN 26.1 mg/dL (7-18); CALCIUM 9.2 mg/dL (8.5-10.1); MAGNESIUM 1.6 mg/dL (1.8-2.4)
[2023-05-24 08:31] LABS: BILIRUBIN,TOTAL 0.7 mg/dL (0.2-1); CREATININE 0.9 mg/dL (0.55-1.3); PHOSPHOROUS 2.9 mg/dL (2.5-4.9)
[2023-05-24] MEDS ORDERED: ACETAMINOPHEN 1000 MG/100 ML BAG IVPB PRN (10:33)
[2023-05-25 08:32] LABS: CALCIUM 8.6 mg/dL (8.5-10.1)
[2023-05-25 08:33] LABS: ALBUMIN 3.8 g/dl (3.4-5.0); BLOOD UREA NITROGEN 14.6 mg/dL (7-18)
[2023-05-25 08:36] LABS: CREATININE 0.8 mg/dL (0.55-1.3)
[2023-05-25 08:37] LABS: BILIRUBIN,TOTAL 0.7 mg/dL (0.2-1); TOT PROT 8.6 g/dl (6.4-8.2)
[2023-05-25 08:40] LABS: BASO % 0.6 % (0-2.0); EOS % 1.1 % (0-4.5); HEMATOCRIT 30.3 % (35.4-49); HEMOGLOBIN 10.1 GM/dL (11.7-16.9); LYMPH % 42.3 % (8-40); MCH 31.7 pg (25.7-33.7); MCHC 33.5 g/dl (32.0-35.9); MEAN CELL VOLUME 94.6 fl (80-96); MEAN PLT VOLUME 8.8 fl (7.5-11.1); MONO % 6.4 % (3.8-10.2); NEUT % 49.6 % (42.8-82.8); PLATELET COUNT 175 10^3/uL (134-434); RDW 14.2 % (11.9-15.9)
[2023-05-25] MEDS: LISINOPRIL 5 MG TABLET PO SCH (19:45)
[2023-05-25] MEDS: ATORVASTATIN CA 40 MG TABLET (FP) PO SCH (21:16)
[2023-05-25 22:34] VITALS: RESP 18
[2023-05-26] MEDS: OLANZapine 2.5 MG TABLET PO SCH (10:54)
[2023-05-26] MEDS ORDERED: ATORVASTATIN CA 20 MG TABLET (FP) ONE (20:58)
[2023-05-27 15:24] VITALS: BP 128/65; PULSE 82; TEMP 98.2
== END 2023-05-27 15:05 | DRG 312 ==
LOC: JER 13:55 → JERBED 05-24 00:20 → OBSVTOIN 05-24 04:05 → J4W 05-25 13:51
PROVIDERS: ADMIT Internal Medicine
DX: R55 Syncope and collapse (principal); G93.41 Metabolic encephalopathy; N39.0 Urinary tract infection, site not specified; F02.811 Dementia in other diseases classified elsewhere, unspecified severity, with agitation; I10 Essential (primary) hypertension; E11.9 Type 2 diabetes mellitus without complications; E78.5 Hyperlipidemia, unspecified; Z79.4 Long term (current) use of insulin; G30.9 Alzheimer's disease, unspecified; N40.0 Benign prostatic hyperplasia without lower urinary tract symptoms
CPT/HCPCS: 0241U-QW; 36415; 70450-TC; 71045-TC-FY; 74177-TC; 80053; 81003; 82550; 82553; 82962; 83036; 83605; 83735; 84100; 84146; 84484; 85025; 87086; 93005; 93010; 93306-TC; 97162-GP; 99285-25; G0378; Q9967

== ENCOUNTER 2024-01-10 04:34 | Inpatient (IN) | payer OTHER ==
[2024-01-10] MEDS ORDERED: ACETAMINOPHEN INJECTION 100 ML ONE (04:51)
[2024-01-10] MEDS ORDERED: PIPERACILLIN/TAZOB 4.5 GM 4.5 GM/100 ML BAG IVPB ONE (04:52)
[2024-01-10] MEDS ORDERED: MEROPENEM 1 GM VIAL (RESTRICTED TO ID) IVPB ONE (04:54)
[2024-01-10] MEDS: SODIUM CHLORIDE 0.9% 500 ML INFUS.BAG IV ONE ×2 (04:59→06:01)
[2024-01-10] MEDS: MEROPENEM 1 GM in DEXTROSE 5%-WATER 100 ML IVPB ONE (04:59)
[2024-01-10] MEDS: ACETAMINOPHEN 1000 MG/100 ML BAG IVPB ONE (05:00)
[2024-01-10] MEDS ORDERED: VANCOMYCIN 1 GRAM (PRE-DOCKED) 1,000 MG/250 ML BAG IVPB ONE (05:14)
[2024-01-10] MEDS: VANCOMYCIN 1,000 MG in DEXTROSE 5%-WATER - 250 ML IVPB ONE (05:33)
[2024-01-10] MEDS ORDERED: KETAMINE HCL 200 MG/20 ML VIAL ONE (05:39)
[2024-01-10] MEDS ORDERED: ROCURONIUM BROMIDE 50 MG/5 ML SYRINGE ONE (05:40)
[2024-01-10 05:41] LABS: HEMATOCRIT 25.6 % (35.4-49); HEMOGLOBIN 8.1 GM/dL (11.7-16.9); MCH 32.2 pg (25.7-33.7); MCHC 31.5 g/dl (32.0-35.9); MEAN CELL VOLUME 102.2 fl (80-96); MEAN PLT VOLUME 9.2 fl (7.5-11.1); PLATELET COUNT 203 10^3/uL (134-434); RBC 2.51 M/mm3 (4.00-5.60); WHITE BLOOD COUNT 28.4 K/mm3 (4.0-10.0)
[2024-01-10 05:47] LABS: VENOUS BASE EXCESS -0.1 mmol/L (-2-2); VENOUS O2 SATURATION 52.4 % (70-80); VENOUS PCO2 34.5 mmHg (38-52); VENOUS PH 7.447 (7.310-7.410)
[2024-01-10 05:58] LABS: CHLORIDE 118 mmol/L (98-107); SODIUM 152 mmol/L (136-145)
[2024-01-10] MEDS: KETAMINE HCL 200 MG/20 ML VIAL IVPUSH ONE (06:01)
[2024-01-10] MEDS: ROCURONIUM BROMIDE 50 MG/5 ML VIAL IV ONE (06:01)
[2024-01-10 06:07] LABS: INR 1.27 (0.83-1.09); PROTHROMBIN TIME (PATIENT) 14.2 SEC (9.7-13.0)
[2024-01-10 06:09] LABS: ACTIVATED PTT 30.9 SECONDS (25.2-36.5)
[2024-01-10] MEDS ORDERED: MIDAZOLAM IN 0.9 % SOD.CHLORID 1 MG/1 ML PLAST..BAG ONE (06:10)
[2024-01-10] MEDS: MIDAZOLAM 100 MG in SODIUM CHLORIDE 100 ML IVPB SCH (06:17)
[2024-01-10 06:35] LABS: EPI CELLS 34 /uL (0-25.1); HYALINE CASTS 19 /uL (0-3.1); URINE APPEARANCE CLOUDY; URINE BACTERIA 11 /uL (0-1359); URINE BILIRUBIN 1+ (NEGATIVE); URINE COLOR DK YELLOW; URINE GLUCOSE (UA) NEGATIVE (NEGATIVE); URINE KETONE TRACE (NEGATIVE); URINE LEUK ESTERASE NEGATIVE (NEGATIVE); URINE NITRITE NEGATIVE (NEGATIVE); URINE PROTEIN 1+ (NEGATIVE); URINE WBC 34 /uL (0-25.8)
[2024-01-10 06:42] LABS: ALBUMIN 1.8 g/dl (3.4-5.0); ANION GAP 15 mmol/L (4-13); CALCIUM 8.3 mg/dL (8.5-10.1); CO2 19 mmol/L (21-32); GLUCOSE,RANDOM 93 mg/dL (74-106); MAGNESIUM 2.6 mg/dL (1.8-2.4)
[2024-01-10 06:43] LABS: BLOOD UREA NITROGEN 121.1 mg/dL (7-18)
[2024-01-10 06:44] LABS: CREATININE 2.7 mg/dL (0.55-1.3); PHOSPHOROUS 5.6 mg/dL (2.5-4.9); SGOT/AST 84 U/L (15-37)
[2024-01-10 06:45] LABS: BILIRUBIN,TOTAL 0.3 mg/dL (0.2-1); TOT PROT 7.5 g/dl (6.4-8.2)
[2024-01-10 06:46] LABS: SGPT/ALT 43 U/L (13-61)
[2024-01-10 06:47] LABS: ALK PHOS 352 U/L (45-117)
[2024-01-10 06:51] LABS: LACTIC ACID 6.4 mmol/L (0.4-2.0)
[2024-01-10] MEDS: NOREPINEPHRINE BITARTRATE/D5W 8 MG/250 ML BAG IVPB SCH (06:57)
[2024-01-10] MEDS: MIDAZOLAM IN 0.9 % SOD.CHLORID 100 MG/100 ML PLAST..BAG IVPB SCH (07:22)
[2024-01-10] MEDS: NOREPINEPHRINE BITARTRATE 4,000 MCG in DEXTROSE 5%-WATER - 496 ML IV SCH ×2 (07:23→10:55)
[2024-01-10 08:29] LABS: URINE RBC 22.5 /uL (0-23.9)
[2024-01-10 08:46] LABS: ANISOCYTOSIS 0; MACROCYTOSIS 0
[2024-01-10 08:57] LABS: LACTIC ACID 5.3 mmol/L (0.4-2.0)
[2024-01-10] MEDS: LACTATED RINGERS SOLUTION 1000 ML INFUS.BAG IV ONE ×2 (09:00→09:35)
[2024-01-10] MEDS: PANTOPRAZOLE SODIUM 40 MG VIAL IVPUSH SCH (09:30)
[2024-01-10] MEDS: HYDROCORTISONE SOD SUCCINATE 100 MG/2 ML VIAL IVPB SCH (09:30)
[2024-01-10] MEDS: MEROPENEM 500 MG in DEXTROSE 5%-WATER 100 ML IVPB SCH (09:33)
[2024-01-10] MEDS: FENTANYL NS IVPB 500 MCG/100 ML BAG IVPB SCH (09:33)
[2024-01-10] MEDS: VASopressin 40 UNITS/100 ML BAG IV SCH (09:34)
[2024-01-10] MEDS: MUPIROCIN 2% TOPICAL OINTMENT FOR DECOLONIZATION NS SCH (09:47)
[2024-01-10] MEDS ORDERED: ACETAMINOPHEN 1000 MG/100 ML BAG IVPB PRN (09:53)
[2024-01-10] MEDS ORDERED: VALPROATE SODIUM INJECTION 125 MG in SODIUM CHLORIDE 50 ML IVPB SCH (10:00)
[2024-01-10] MEDS ORDERED: VALPROATE SODIUM PO SCH (10:00)
[2024-01-10] MEDS ORDERED: FAMOTIDINE 20 MG/50 ML IVPB 20 MG/50 ML MG IVPB SCH (10:00)
[2024-01-10] MEDS ORDERED: VALPROATE SODIUM 500 MG/5 ML VIAL IVPB SCH (10:00)
[2024-01-10] MEDS ORDERED: FLUDROCORTISONE ACETATE 0.1 MG TABLET (FP) NGT SCH (10:13)
[2024-01-10] MEDS: VALPROATE SODIUM INJECTION 125 MG in SODIUM CHLORIDE 100 ML IVPB SCH (10:18)
[2024-01-10] MEDS: SODIUM CHLORIDE 1,000 ML IV SCH (10:44)
[2024-01-10] MEDS: FLUDROCORTISONE ACETATE 0.1 MG TABLET (FP) NGT SCH ×2 (10:55→11:52)
[2024-01-10] MEDS: FENTANYL IVPB 500 MCG/100 ML BAG IVPB SCH (10:56)
[2024-01-10] MEDS: HEPARIN NA (PORCINE) 5,000 UNITS/ML 1ML VIAL SQ SCH (13:10)
[2024-01-10] MEDS ORDERED: MEROPENEM 500 MG in DEXTROSE 5%-WATER 100 ML IVPB SCH (18:00)
[2024-01-10 21:52] LABS: LACTIC ACID 2.8 mmol/L (0.4-2.0)
[2024-01-10] MEDS: PIPERACILLIN/TAZOB 3.375 GM 3.375 GM in DEXTROSE 5%-WATER - 50 ML IVPB SCH (22:05)
[2024-01-10] MEDS: CHLORHEXIDINE GLUCONATE 4% CLEANSER FOR DECOLONIZATION TP SCH (22:06)
[2024-01-11 06:52] LABS: POTASSIUM 4.6 mmol/L (3.5-5.1)
[2024-01-11 06:53] LABS: CALCIUM 7.3 mg/dL (8.5-10.1)
[2024-01-11 06:54] LABS: ALBUMIN 1.5 g/dl (3.4-5.0)
[2024-01-11 06:55] LABS: MAGNESIUM 2.5 mg/dL (1.8-2.4)
[2024-01-11 06:58] LABS: CREATININE 1.2 mg/dL (0.55-1.3); PHOSPHOROUS 4.4 mg/dL (2.5-4.9)
[2024-01-11 07:00] LABS: BILIRUBIN,TOTAL 0.5 mg/dL (0.2-1); TOT PROT 6.9 g/dl (6.4-8.2)
[2024-01-11 07:09] LABS: BLOOD UREA NITROGEN 91.9 mg/dL (7-18)
[2024-01-11 07:16] LABS: HEMATOCRIT 23.8 % (35.4-49); HEMOGLOBIN 7.5 GM/dL (11.7-16.9); MCHC 31.6 g/dl (32.0-35.9); MEAN CELL VOLUME 101.4 fl (80-96); MEAN PLT VOLUME 8.7 fl (7.5-11.1); PLATELET COUNT 188 10^3/uL (134-434); RBC 2.35 M/mm3 (4.00-5.60); RDW 16.4 % (11.9-15.9)
[2024-01-11 07:26] LABS: LACTIC ACID 2.5 mmol/L (0.4-2.0)
[2024-01-11] MEDS: HYDROCORTISONE SOD SUCCINATE 100 MG/2 ML VIAL IVPB SCH (14:03)
[2024-01-11] MEDS: ACETAMINOPHEN 1000 MG/100 ML BAG IVPB PRN (14:33)
[2024-01-11] MEDS ORDERED: RAPID SEQUENCE INTUBATION KIT NR ONE (18:53)
[2024-01-12 06:54] LABS: HEMATOCRIT 22.9 % (35.4-49); HEMOGLOBIN 7.3 GM/dL (11.7-16.9); MCH 32.5 pg (25.7-33.7); MCHC 31.9 g/dl (32.0-35.9); MEAN PLT VOLUME 9.3 fl (7.5-11.1); PLATELET COUNT 174 10^3/uL (134-434); RBC 2.25 M/mm3 (4.00-5.60); RDW 16.3 % (11.9-15.9); WHITE BLOOD COUNT 19.1 K/mm3 (4.0-10.0)
[2024-01-12 07:15] LABS: POTASSIUM 4.6 mmol/L (3.5-5.1)
[2024-01-12 07:28] LABS: CALCIUM 7.4 mg/dL (8.5-10.1)
[2024-01-12 07:29] LABS: ALBUMIN 1.5 g/dl (3.4-5.0); BLOOD UREA NITROGEN 93.5 mg/dL (7-18)
[2024-01-12 07:32] LABS: MAGNESIUM 2.7 mg/dL (1.8-2.4); PHOSPHOROUS 3.4 mg/dL (2.5-4.9)
[2024-01-12 07:33] LABS: BILIRUBIN,TOTAL 0.4 mg/dL (0.2-1); TOT PROT 6.8 g/dl (6.4-8.2)
[2024-01-12] MEDS: COLLAGENASE CLOSTRIDIUM HIST. 30 GRAMS TUBE TP SCH (16:35)
[2024-01-12] MEDS: INSULIN ASPART SLIDING SCALE (NOVOLOG) 1 VIAL SQ SCH (20:05)
[2024-01-13 07:12] LABS: MCHC 31.4 g/dl (32.0-35.9); MEAN CELL VOLUME 101.9 fl (80-96); MEAN PLT VOLUME 9.4 fl (7.5-11.1); PLATELET COUNT 150 10^3/uL (134-434); RBC 2.16 M/mm3 (4.00-5.60); RDW 16.2 % (11.9-15.9); WHITE BLOOD COUNT 20.1 K/mm3 (4.0-10.0)
[2024-01-13 07:26] LABS: POTASSIUM 4.8 mmol/L (3.5-5.1)
[2024-01-13 07:28] LABS: HEMOGLOBIN 6.9 GM/dL (11.7-16.9)
[2024-01-13 07:32] LABS: ALBUMIN 1.5 g/dl (3.4-5.0); BLOOD UREA NITROGEN 88.5 mg/dL (7-18); CALCIUM 7.7 mg/dL (8.5-10.1)
[2024-01-13 07:33] LABS: MAGNESIUM 2.8 mg/dL (1.8-2.4)
[2024-01-13 07:35] LABS: CREATININE 0.9 mg/dL (0.55-1.3)
[2024-01-13 07:36] LABS: PHOSPHOROUS 2.7 mg/dL (2.5-4.9)
[2024-01-13 07:37] LABS: BILIRUBIN,TOTAL 0.4 mg/dL (0.2-1); TOT PROT 6.8 g/dl (6.4-8.2)
[2024-01-13] MEDS ORDERED: TRIPLE LUMEN FLUSH 4 ML ML IVPUSH PRN (11:08)
[2024-01-14 06:15] LABS: HEMATOCRIT 26.2 % (35.4-49); HEMOGLOBIN 8.6 GM/dL (11.7-16.9); MCH 31.7 pg (25.7-33.7); MCHC 32.8 g/dl (32.0-35.9); MEAN CELL VOLUME 96.7 fl (80-96); MEAN PLT VOLUME 9.3 fl (7.5-11.1); PLATELET COUNT 134 10^3/uL (134-434); RBC 2.71 M/mm3 (4.00-5.60); RDW 18.4 % (11.9-15.9); WHITE BLOOD COUNT 20.5 K/mm3 (4.0-10.0)
[2024-01-14 06:31] LABS: POTASSIUM 4.6 mmol/L (3.5-5.1)
[2024-01-14 06:36] LABS: CALCIUM 7.7 mg/dL (8.5-10.1)
[2024-01-14 06:37] LABS: ALBUMIN 1.5 g/dl (3.4-5.0); BLOOD UREA NITROGEN 76.5 mg/dL (7-18); MAGNESIUM 3.1 mg/dL (1.8-2.4)
[2024-01-14 06:40] LABS: CREATININE 0.8 mg/dL (0.55-1.3); PHOSPHOROUS 2.7 mg/dL (2.5-4.9)
[2024-01-14 06:41] LABS: BILIRUBIN,TOTAL 0.6 mg/dL (0.2-1); TOT PROT 6.6 g/dl (6.4-8.2)
[2024-01-15 06:28] LABS: ARTERIAL BLD GAS O2 SATURATION 98.9 % (95-98); ARTERIAL BLOOD GAS BASE EXCESS -0.1 mmol/L (-2-2); ARTERIAL BLOOD GAS pH 7.452 (7.350-7.450)
[2024-01-15 06:32] LABS: VENT MODE V-A/C; VENT RATE 12
[2024-01-15 07:42] LABS: HEMATOCRIT 26.4 % (35.4-49); HEMOGLOBIN 8.6 GM/dL (11.7-16.9); MCH 31.7 pg (25.7-33.7); MCHC 32.6 g/dl (32.0-35.9); MEAN CELL VOLUME 97.3 fl (80-96); MEAN PLT VOLUME 9.6 fl (7.5-11.1); PLATELET COUNT 137 10^3/uL (134-434); RBC 2.72 M/mm3 (4.00-5.60); RDW 18.3 % (11.9-15.9); WHITE BLOOD COUNT 22.2 K/mm3 (4.0-10.0)
[2024-01-15 08:01] LABS: POTASSIUM 4.7 mmol/L (3.5-5.1)
[2024-01-15 08:04] LABS: ALBUMIN 1.4 g/dl (3.4-5.0); CALCIUM 7.3 mg/dL (8.5-10.1)
[2024-01-15 08:05] LABS: BLOOD UREA NITROGEN 52.1 mg/dL (7-18); MAGNESIUM 3.1 mg/dL (1.8-2.4)
[2024-01-15 08:08] LABS: CREATININE 0.6 mg/dL (0.55-1.3)
[2024-01-15 08:09] LABS: BILIRUBIN,TOTAL 0.4 mg/dL (0.2-1); TOT PROT 6.4 g/dl (6.4-8.2)
[2024-01-15 09:27] LABS: ANISOCYTOSIS 0; HELMET CELLS 0; HOWELL-JOLLY BODIES 0; MACROCYTOSIS 0; OVALOCYTE 0; ROULEAU 0; SICKELED CELLS 0; TARGET CELLS 0; TEAR DROP CELLS 0; TOXIC GRANULATION 0
[2024-01-15] MEDS ORDERED: INSULIN ASPART SLIDING SCALE (NOVOLOG) 1 VIAL SQ ONE ×2 (12:40→17:30)
[2024-01-16] MEDS ORDERED: fentaNYL CITRATE 250 MCG/5 ML VIAL ONE (03:43)
[2024-01-16 06:41] LABS: HEMATOCRIT 27.1 % (35.4-49); HEMOGLOBIN 8.7 GM/dL (11.7-16.9); MCH 31.7 pg (25.7-33.7); MCHC 32.3 g/dl (32.0-35.9); MEAN CELL VOLUME 98.3 fl (80-96); MEAN PLT VOLUME 9.8 fl (7.5-11.1); PLATELET COUNT 155 10^3/uL (134-434); POTASSIUM 4.7 mmol/L (3.5-5.1); RBC 2.75 M/mm3 (4.00-5.60); RDW 17.5 % (11.9-15.9); WHITE BLOOD COUNT 22.9 K/mm3 (4.0-10.0)
[2024-01-16 06:48] LABS: CALCIUM 7.5 mg/dL (8.5-10.1)
[2024-01-16 06:49] LABS: ALBUMIN 1.4 g/dl (3.4-5.0); BLOOD UREA NITROGEN 45.8 mg/dL (7-18); MAGNESIUM 2.9 mg/dL (1.8-2.4)
[2024-01-16 06:52] LABS: CREATININE 0.6 mg/dL (0.55-1.3)
[2024-01-16 06:53] LABS: BILIRUBIN,TOTAL 0.5 mg/dL (0.2-1)
[2024-01-16 06:54] LABS: TOT PROT 6.1 g/dl (6.4-8.2)
[2024-01-16 09:26] LABS: ANISOCYTOSIS 1+; MACROCYTOSIS 1+
[2024-01-16] MEDS: DEXMEDETOMIDINE PREMIX 400 MCG/100 ML BAG IVPB SCH (14:41)
[2024-01-16 15:48] VITALS: BMI 25.7
[2024-01-16] MEDS ORDERED: ALBUTEROL SO4 0.083% IH SOL 2.5 MG/3 ML VIAL.NEB. NEB PRN (22:00)
[2024-01-16] MEDS ORDERED: ALBUTEROL SO4 0.083% IH SOL 2.5 MG/3 ML VIAL.NEB. NEB ONE (22:26)
[2024-01-17 06:49] LABS: HEMATOCRIT 30.1 % (35.4-49); HEMOGLOBIN 9.5 GM/dL (11.7-16.9); MCH 31.4 pg (25.7-33.7); MCHC 31.5 g/dl (32.0-35.9); MEAN CELL VOLUME 99.8 fl (80-96); MEAN PLT VOLUME 9.7 fl (7.5-11.1); PLATELET COUNT 142 10^3/uL (134-434); RBC 3.01 M/mm3 (4.00-5.60); RDW 17.5 % (11.9-15.9)
[2024-01-17 06:56] LABS: HEMATOCRIT 29.4 % (35.4-49); HEMOGLOBIN 9.5 GM/dL (11.7-16.9); MCH 32.2 pg (25.7-33.7); MCHC 32.5 g/dl (32.0-35.9); MEAN CELL VOLUME 99.3 fl (80-96); MEAN PLT VOLUME 9.5 fl (7.5-11.1); PLATELET COUNT 137 10^3/uL (134-434); RBC 2.96 M/mm3 (4.00-5.60); RDW 16.8 % (11.9-15.9)
[2024-01-17 07:09] LABS: POTASSIUM 5.3 mmol/L (3.5-5.1)
[2024-01-17 07:11] LABS: ALBUMIN 1.5 g/dl (3.4-5.0); BLOOD UREA NITROGEN 60.2 mg/dL (7-18); CALCIUM 7.3 mg/dL (8.5-10.1)
[2024-01-17 07:12] LABS: MAGNESIUM 2.9 mg/dL (1.8-2.4)
[2024-01-17 07:15] LABS: CREATININE 1.1 mg/dL (0.55-1.3); PHOSPHOROUS 4.5 mg/dL (2.5-4.9)
[2024-01-17 07:16] LABS: BILIRUBIN,TOTAL 0.6 mg/dL (0.2-1); TOT PROT 6.8 g/dl (6.4-8.2)
[2024-01-17 07:23] LABS: WHITE BLOOD COUNT 32.6 K/mm3 (4.0-10.0)
[2024-01-17 07:25] LABS: WHITE BLOOD COUNT 31.9 K/mm3 (4.0-10.0)
[2024-01-17 09:39] LABS: ANISOCYTOSIS 2+; MACROCYTOSIS 0
[2024-01-17 13:44] LABS: INR 1.26 (0.83-1.09); PROTHROMBIN TIME (PATIENT) 14.1 SEC (9.7-13.0)
[2024-01-17] MEDS: HEPARIN NA (PORCINE) 5,000 UNITS/ML 1ML VIAL SQ SCH (14:04)
[2024-01-17] MEDS: SODIUM ZIRCONIUM CYCLOSILICATE (LOKELMA) 5 GM PACKET PO SCH (17:37)
[2024-01-18 06:45] LABS: HEMATOCRIT 27.7 % (35.4-49); MCH 31.9 pg (25.7-33.7); MCHC 32.4 g/dl (32.0-35.9); MEAN CELL VOLUME 98.7 fl (80-96); MEAN PLT VOLUME 10.3 fl (7.5-11.1); PLATELET COUNT 101 10^3/uL (134-434); RBC 2.81 M/mm3 (4.00-5.60); RDW 16.7 % (11.9-15.9); WHITE BLOOD COUNT 24.4 K/mm3 (4.0-10.0)
[2024-01-18 07:01] LABS: CHLORIDE 115 mmol/L (98-107); POTASSIUM 3.6 mmol/L (3.5-5.1); SODIUM 146 mmol/L (136-145)
[2024-01-18 07:07] LABS: CALCIUM 7.2 mg/dL (8.5-10.1)
[2024-01-18 07:08] LABS: ALBUMIN 1.5 g/dl (3.4-5.0); ANION GAP 6 mmol/L (4-13); BLOOD UREA NITROGEN 56.4 mg/dL (7-18); CO2 25 mmol/L (21-32); GLUCOSE,RANDOM 272 mg/dL (74-106); MAGNESIUM 2.8 mg/dL (1.8-2.4)
[2024-01-18 07:11] LABS: CREATININE 0.9 mg/dL (0.55-1.3); SGOT/AST 585 U/L (15-37); TOT PROT 6.4 g/dl (6.4-8.2)
[2024-01-18 07:12] LABS: PHOSPHOROUS 3.8 mg/dL (2.5-4.9); SGPT/ALT 555 U/L (13-61)
[2024-01-18] MEDS: INSULIN ASPART SLIDING SCALE (NOVOLOG) 1 VIAL SQ SCH (07:26)
[2024-01-18 07:36] LABS: ALK PHOS 267 U/L (45-117); BILIRUBIN,TOTAL 0.4 mg/dL (0.2-1)
[2024-01-18 10:13] LABS: INR 1.2 (0.83-1.09); PROTHROMBIN TIME (PATIENT) 13.7 SEC (9.7-13.0)
[2024-01-18] MEDS: FUROSEMIDE 40 MG/4 ML INJECTABLE VIAL IVPUSH ONE (10:31)
[2024-01-18] MEDS: PROPOFOL 200 MG/20 ML VIAL IVPUSH ONE ×2 (12:39→12:42)
[2024-01-18] MEDS ORDERED: LIDOCAINE HCL 2% 100 MG/5 ML DISP.SYRIN ONE (12:47)
[2024-01-18] MEDS ORDERED: LIDOCAINE HCL 1%, 10 MG/ML (20ML VIAL) ONE (12:48)
[2024-01-18] MEDS: HYDROCORTISONE SOD SUCCINATE 100 MG/2 ML VIAL IVPB SCH (13:59)
[2024-01-19 00:32] LABS: ARTERIAL BLD GAS O2 SATURATION 98.9 % (95-98); ARTERIAL BLOOD GAS BASE EXCESS 1.6 mmol/L (-2-2); ARTERIAL BLOOD GAS PO2 136.9 mmHg (80-100); ARTERIAL BLOOD GAS pH 7.475 (7.350-7.450)
[2024-01-19 00:39] LABS: ALLENS TEST POSITIVE
[2024-01-19 00:40] LABS: VENT MODE A/C; VENT RATE 12
[2024-01-19] MEDS: FENTANYL CITRATE/PF 50 MCG/ML VIAL IVPUSH PRN (07:45)
[2024-01-19 08:33] LABS: HEMATOCRIT 30.6 % (35.4-49); HEMOGLOBIN 9.9 GM/dL (11.7-16.9); MCH 31.9 pg (25.7-33.7); MCHC 32.5 g/dl (32.0-35.9); MEAN CELL VOLUME 98.2 fl (80-96); MEAN PLT VOLUME 10.3 fl (7.5-11.1); PLATELET COUNT 127 10^3/uL (134-434); RBC 3.11 M/mm3 (4.00-5.60); RDW 17.2 % (11.9-15.9)
[2024-01-19 08:34] LABS: INR 1.14 (0.83-1.09); PROTHROMBIN TIME (PATIENT) 12.8 SEC (9.7-13.0)
[2024-01-19 08:43] LABS: WHITE BLOOD COUNT 30.3 K/mm3 (4.0-10.0)
[2024-01-19 09:00] LABS: POTASSIUM 3.5 mmol/L (3.5-5.1)
[2024-01-19 09:01] LABS: CALCIUM 7.2 mg/dL (8.5-10.1)
[2024-01-19 09:02] LABS: ALBUMIN 1.5 g/dl (3.4-5.0); BLOOD UREA NITROGEN 47.6 mg/dL (7-18); MAGNESIUM 2.5 mg/dL (1.8-2.4)
[2024-01-19 09:05] LABS: CREATININE 0.7 mg/dL (0.55-1.3); PHOSPHOROUS 3.4 mg/dL (2.5-4.9)
[2024-01-19 09:07] LABS: BILIRUBIN,TOTAL 0.6 mg/dL (0.2-1); TOT PROT 6.3 g/dl (6.4-8.2)
[2024-01-19] MEDS: AMINO ACIDS/PROTEIN HYDROLYS 30 ML LIQUID.PKT PO SCH (09:27)
[2024-01-19] MEDS: PROPOFOL 1,000,000 MCG/100 ML VIAL IVPB SCH (12:15)
[2024-01-20 07:52] LABS: HEMATOCRIT 26.9 % (35.4-49); HEMOGLOBIN 8.6 GM/dL (11.7-16.9); MCH 31.6 pg (25.7-33.7); MEAN CELL VOLUME 98.6 fl (80-96); MEAN PLT VOLUME 10.8 fl (7.5-11.1); PLATELET COUNT 89 10^3/uL (134-434); RBC 2.73 M/mm3 (4.00-5.60); RDW 16.9 % (11.9-15.9); WHITE BLOOD COUNT 28.7 K/mm3 (4.0-10.0)
[2024-01-20 09:42] LABS: POTASSIUM 3.9 mmol/L (3.5-5.1)
[2024-01-20 09:44] LABS: ALBUMIN 1.3 g/dl (3.4-5.0)
[2024-01-20 09:46] LABS: CREATININE 0.5 mg/dL (0.55-1.3)
[2024-01-20 09:48] LABS: BILIRUBIN,TOTAL 0.3 mg/dL (0.2-1); TOT PROT 5.5 g/dl (6.4-8.2)
[2024-01-20 10:14] LABS: INR 1.08 (0.83-1.09); PROTHROMBIN TIME (PATIENT) 12.4 SEC (9.7-13.0)
[2024-01-20] MEDS ORDERED: PIPERACILLIN/TAZOBACTAM 3.375 GM VIAL IVPB ONE (21:39)
[2024-01-21 09:19] LABS: HEMATOCRIT 28.4 % (35.4-49); HEMOGLOBIN 8.8 GM/dL (11.7-16.9); MCHC 31.1 g/dl (32.0-35.9); MEAN CELL VOLUME 99.4 fl (80-96); MEAN PLT VOLUME 10.6 fl (7.5-11.1); PLATELET COUNT 137 10^3/uL (134-434); RBC 2.85 M/mm3 (4.00-5.60); RDW 17.1 % (11.9-15.9)
[2024-01-21 09:31] LABS: POTASSIUM 3.8 mmol/L (3.5-5.1)
[2024-01-21 10:16] LABS: ANISOCYTOSIS 2+; MACROCYTOSIS 0
[2024-01-21 10:52] LABS: EPI CELLS 7 /uL (0-25.1); HYALINE CASTS 2 /uL (0-3.1); URINE APPEARANCE CLEAR; URINE BACTERIA 17 /uL (0-1359); URINE BILIRUBIN NEGATIVE (NEGATIVE); URINE COLOR YELLOW; URINE GLUCOSE (UA) NEGATIVE (NEGATIVE); URINE KETONE NEGATIVE (NEGATIVE); URINE LEUK ESTERASE NEGATIVE (NEGATIVE); URINE NITRITE NEGATIVE (NEGATIVE); URINE PROTEIN 1+ (NEGATIVE); URINE WBC 19 /uL (0-25.8)
[2024-01-21 10:59] LABS: ALBUMIN 1.3 g/dl (3.4-5.0); CALCIUM 7.3 mg/dL (8.5-10.1); MAGNESIUM 2.6 mg/dL (1.8-2.4)
[2024-01-21 11:00] LABS: BLOOD UREA NITROGEN 47.5 mg/dL (7-18)
[2024-01-21 11:02] LABS: CREATININE 0.5 mg/dL (0.55-1.3)
[2024-01-21 11:03] LABS: PHOSPHOROUS 2.5 mg/dL (2.5-4.9)
[2024-01-21 11:05] LABS: TOT PROT 5.3 g/dl (6.4-8.2)
[2024-01-21 11:09] LABS: URINE RBC NEGATIVE /uL (0-23.9); YEAST NEGATIVE (NEGATIVE)
[2024-01-21 11:09] LABS: BILIRUBIN,TOTAL 0.4 mg/dL (0.2-1)
[2024-01-21] MEDS: PIPERACILLIN/TAZOB 4.5 GM 4.5 GM in DEXTROSE 5%-WATER 100 ML IVPB SCH (17:32)
[2024-01-22 09:11] LABS: POTASSIUM 4.1 mmol/L (3.5-5.1)
[2024-01-22 09:16] LABS: ALBUMIN 1.1 g/dl (3.4-5.0); BLOOD UREA NITROGEN 61.1 mg/dL (7-18); CALCIUM 7.3 mg/dL (8.5-10.1); MAGNESIUM 2.6 mg/dL (1.8-2.4)
[2024-01-22 09:18] LABS: HEMATOCRIT 25.2 % (35.4-49); MCH 31.1 pg (25.7-33.7); MCHC 31.6 g/dl (32.0-35.9); MEAN CELL VOLUME 98.4 fl (80-96); MEAN PLT VOLUME 10.2 fl (7.5-11.1); PLATELET COUNT 128 10^3/uL (134-434); RBC 2.56 M/mm3 (4.00-5.60); RDW 17.2 % (11.9-15.9)
[2024-01-22 09:20] LABS: BILIRUBIN,TOTAL 0.4 mg/dL (0.2-1); CREATININE 0.6 mg/dL (0.55-1.3); WHITE BLOOD COUNT 37.4 K/mm3 (4.0-10.0)
[2024-01-22 09:21] LABS: TOT PROT 4.9 g/dl (6.4-8.2)
[2024-01-22] MEDS: ASCORBIC ACID 500 MG/5 ML UNIT DOSE CUP NGT SCH (09:45)
[2024-01-22 09:51] LABS: ANISOCYTOSIS 3+; MACROCYTOSIS 0
[2024-01-23 07:53] LABS: POTASSIUM 4.6 mmol/L (3.5-5.1)
[2024-01-23 07:55] LABS: CALCIUM 7.1 mg/dL (8.5-10.1)
[2024-01-23 07:56] LABS: BLOOD UREA NITROGEN 68.2 mg/dL (7-18); MAGNESIUM 2.8 mg/dL (1.8-2.4)
[2024-01-23 07:59] LABS: CREATININE 0.7 mg/dL (0.55-1.3); PHOSPHOROUS 3.5 mg/dL (2.5-4.9)
[2024-01-23 08:00] LABS: BILIRUBIN,TOTAL 0.3 mg/dL (0.2-1); TOT PROT 4.9 g/dl (6.4-8.2)
[2024-01-23 08:19] LABS: HEMATOCRIT 24.6 % (35.4-49); HEMOGLOBIN 7.6 GM/dL (11.7-16.9); MCHC 30.8 g/dl (32.0-35.9); MEAN CELL VOLUME 100.4 fl (80-96); MEAN PLT VOLUME 10.5 fl (7.5-11.1); PLATELET COUNT 124 10^3/uL (134-434); RBC 2.45 M/mm3 (4.00-5.60); RDW 18.1 % (11.9-15.9); WHITE BLOOD COUNT 29.3 K/mm3 (4.0-10.0)
[2024-01-23 09:19] LABS: ANISOCYTOSIS 0; MACROCYTOSIS 1+
[2024-01-23] MEDS: HYDROCORTISONE SOD SUCCINATE 100 MG/2 ML VIAL IVPB SCH (21:06)
[2024-01-24 07:03] LABS: HEMOGLOBIN 8.4 GM/dL (11.7-16.9); MCH 32.3 pg (25.7-33.7); MCHC 32.5 g/dl (32.0-35.9); MEAN CELL VOLUME 99.3 fl (80-96); MEAN PLT VOLUME 10.3 fl (7.5-11.1); PLATELET COUNT 159 10^3/uL (134-434); RBC 2.61 M/mm3 (4.00-5.60); RDW 17.3 % (11.9-15.9); WHITE BLOOD COUNT 27.9 K/mm3 (4.0-10.0)
[2024-01-24 07:14] LABS: POTASSIUM 4.5 mmol/L (3.5-5.1)
[2024-01-24 07:18] LABS: ALBUMIN 1.1 g/dl (3.4-5.0); BLOOD UREA NITROGEN 68.6 mg/dL (7-18); CALCIUM 7.4 mg/dL (8.5-10.1); MAGNESIUM 2.9 mg/dL (1.8-2.4)
[2024-01-24 07:21] LABS: CREATININE 0.6 mg/dL (0.55-1.3); PHOSPHOROUS 3.5 mg/dL (2.5-4.9)
[2024-01-24 07:23] LABS: BILIRUBIN,TOTAL 0.4 mg/dL (0.2-1); TOT PROT 5.3 g/dl (6.4-8.2)
[2024-01-24 09:47] LABS: ANISOCYTOSIS 2+; MACROCYTOSIS 0
[2024-01-24] MEDS: FUROSEMIDE 40 MG/4 ML INJECTABLE VIAL IVPUSH ONE (12:04)
[2024-01-25 08:41] LABS: HEMATOCRIT 23.1 % (35.4-49); HEMOGLOBIN 7.4 GM/dL (11.7-16.9); MCH 31.8 pg (25.7-33.7); MCHC 32.2 g/dl (32.0-35.9); MEAN CELL VOLUME 98.9 fl (80-96); MEAN PLT VOLUME 9.6 fl (7.5-11.1); PLATELET COUNT 167 10^3/uL (134-434); RBC 2.34 M/mm3 (4.00-5.60); RDW 17.4 % (11.9-15.9); WHITE BLOOD COUNT 22.6 K/mm3 (4.0-10.0)
[2024-01-25 08:54] LABS: POTASSIUM 3.8 mmol/L (3.5-5.1)
[2024-01-25 09:02] LABS: ALBUMIN 1.1 g/dl (3.4-5.0)
[2024-01-25 09:03] LABS: BILIRUBIN,TOTAL 0.5 mg/dL (0.2-1); TOT PROT 5.1 g/dl (6.4-8.2)
[2024-01-25 09:04] LABS: CALCIUM 7.3 mg/dL (8.5-10.1)
[2024-01-25 09:05] LABS: CREATININE 0.5 mg/dL (0.55-1.3); MAGNESIUM 2.5 mg/dL (1.8-2.4)
[2024-01-25 12:06] VITALS: BP 149/71; TEMP 96.9
[2024-01-25] MEDS: morphine SULFATE 4 MG/ML VIAL IVPUSH ONE (12:53)
[2024-01-25] MEDS: MORPHINE SULFATE/0.9% NACL/PF 100 MG/100 ML BAG IVPB SCH (12:53)
[2024-01-25 14:17] VITALS: PULSE 93; RESP 12
[2024-01-25] MEDS: SCOPOLAMINE HYDROBROMIDE 1 PATCH PATCH.TD72 TD SCH (15:44)
[2024-01-26] MEDS: MORPHINE SULFATE/0.9% NACL/PF 100 MG/100 ML BAG IVPB SCH (13:44)
== END 2024-01-26 18:50 | disposition expired | DRG 870 ==
LOC: JER 04:34 → JERBED 06:18 → JICU 08:50
PROVIDERS: ADMIT Internal Medicine Pulmonary Disease; ATTEND Internal Medicine Pulmonary Disease
PROC: 5A1955Z Respiratory Ventilation, Greater than 96 Consecutive Hours (ICD-10-PCS; principal; 2024-01-10)
PROC: 0BH17EZ Insertion of Endotracheal Airway into Trachea, Via Natural or Artificial Opening (ICD-10-PCS; 2024-01-10)
PROC: 05HM33Z Insertion of Infusion Device into Right Internal Jugular Vein, Percutaneous Approach (ICD-10-PCS; 2024-01-10)
PROC: 30233N1 Transfusion of Nonautologous Red Blood Cells into Peripheral Vein, Percutaneous Approach (ICD-10-PCS; 2024-01-13)
PROC: 0W9930Z Drainage of Right Pleural Cavity with Drainage Device, Percutaneous Approach (ICD-10-PCS; 2024-01-18)
DX: A41.9 Sepsis, unspecified organism (principal); J96.01 Acute respiratory failure with hypoxia; R65.21 Severe sepsis with septic shock; J18.9 Pneumonia, unspecified organism; R64 Cachexia; E87.0 Hyperosmolality and hypernatremia; J93.9 Pneumothorax, unspecified; N17.9 Acute kidney failure, unspecified; E87.20 Acidosis, unspecified; L89.150 Pressure ulcer of sacral region, unstageable; F03.90 Unspecified dementia, unspecified severity, without behavioral disturbance, psychotic disturbance, mood disturbance, and anxiety; I10 Essential (primary) hypertension; L89.326 Pressure-induced deep tissue damage of left buttock; L89.316 Pressure-induced deep tissue damage of right buttock; E11.9 Type 2 diabetes mellitus without complications; G40.909 Epilepsy, unspecified, not intractable, without status epilepticus; E78.5 Hyperlipidemia, unspecified; L08.9 Local infection of the skin and subcutaneous tissue, unspecified; D64.9 Anemia, unspecified
CPT/HCPCS: 0241U-QW; 36415; 36430; 36600; 70450-TC; 71045-TC-FY; 76705-TC; 80053; 81003; 82308; 82550; 82553; 82607; 82746; 82803; 82962; 82977; 83605; 83690; 83735; 84100; 84484; 85025; 85027; 85610; 85730; 86140; 86704; 86708; 86803; 86850; 86900; 86901; 86922; 87040; 87070; 87076; 87077; 87086; 87186; 87205; 87340; 87517; 93005; 93010; 94002; 99291; G0480; J0131; J1644; J3490; P9058